=== PATIENT | female | born 1935 | race Caucasian/White ===

== ENCOUNTER 2018-01-20 02:40 | Emergency (ER) | payer MEDICARE, OTHER ==
[~2018-01-20] VITALS: Ht 165.1 cm; Wt 74.8 kg
[~2018-01-20 02:40] MED LIST: AMLO5 PO; ASPI81CH PO; ASPI81EC PO; ATEN25 PO; ATEN50; ATEN50 PO; Aspir 8181 MG PO; BENAML10/40 PO; BENAML20/5; BENAML20/5 PO; Bactrim Ds Tab1 EACH PO; CYCL10 PO; ESTRTP VAG; FAMO20 PO; FOLBEE; FOLIC ACID; FURO20 PO; GABA300 PO; HYDACE10B PO; HYDACE5 PO; HYDCHL50 PO; Hydrocodone-Ap1 EA20 PO; LAXATIVE; LORA.5 PO; Lotrel 5-40 MG1 EACH PO; METCAR500 PO; METO100ER PO; METO50 PO; METO50ER PO; MUSCLE RELAXER; NITR100CA PO; OMEP20ER PO; OXYACE5T PO; OXYC5 PO; PANT40; PANT40 PO; POTCHL10ER PO; PROACE100; PROACE100 PO; RXHYDMOR2 PO; RXONDA4ODT MM; STOOL SOFTENER PO; TOPI25 PO; TOPI50 PO; TRAM50 PO; TYLENOL PM; XARELTO15 MG PO; XARELTO20 MG PO; [UNRECOGNIZED DRUG - OTHER]; [UNRECOGNIZED DRUG - REMARK]
== END 2018-01-20 04:32 | disposition home or self-care (01) ==
LOC: ER 02:40
DX: R04.0 Epistaxis (principal); Z88.8 Allergy status to other drugs, medicaments and biological substances; Z91.018 Allergy to other foods; Z79.899 Other long term (current) drug therapy; Z79.891 Long term (current) use of opiate analgesic; I10 Essential (primary) hypertension; I48.91 Unspecified atrial fibrillation; K21.9 Gastro-esophageal reflux disease without esophagitis; Z86.73 Personal history of transient ischemic attack (TIA), and cerebral infarction without residual deficits
CPT/HCPCS: 30901; 99283

== ENCOUNTER → 2018-03-30 | Outpatient (CLI) | payer MEDICARE, OTHER ==
[2018-03-31 12:43] LABS: Blood, Urine 1+ (Neg); Glucose Qualitative, Urine Neg (Neg); Ketones, Urine Neg (Neg); Leukocyte Esterase, Urine 2+ (Neg); Nitrite, Urine Pos (Neg); Protein, Urine 1+ (Neg); Specific Gravity, Urine 1.015 (1.003-1.022); Urobilinogen, Urine 2+ (Normal)
[2018-03-31 12:54] LABS: Appearance, Urine Hazy (Clear); Bilirubin, Urine 2+ (Neg); Color, Urine Brown (P-Yellow)
[2018-03-31 12:55] LABS: Bacteria Many /hpf; Squamous Epithelial Cells Few /hpf (Few)
== END ==
LOC: LAB 17:20 → LAB SHORT 17:20
PROVIDERS: Registered Nurse
DX: R32 Unspecified urinary incontinence (principal)
CPT/HCPCS: 81001; 87077; 87086; 87186

== ENCOUNTER 2018-05-06 20:10 | Inpatient (IN) | payer MEDICARE, OTHER ==
[~2018-05-06] VITALS: Ht 162.6 cm; Wt 71.9 kg
[2018-05-06 20:41] LABS: BASOPHILS ABSOLUTE AUTO 0.02 K/mm3 (0.00-0.23); BASOPHILS PERCENT AUTO 0 % (0-2); EOSINOPHILS PERCENT AUTO 0 % (0-6); Hematocrit 36.8 % (33.0-51.0); Hemoglobin 12.8 g/dL (11.5-16.0); IMMATURE GRAN PERCENT AUTO 1 % (0-1); LYMPHOCYTES ABSOLUTE AUTO 0.59 K/mm3 (0.84-5.20); LYMPHOCYTES PERCENT AUTO 3 % (21-46); MONOCYTES ABSOLUTE AUTO 1.55 K/mm3 (0.16-1.47); MONOCYTES PERCENT AUTO 7 % (4-13); Mean Corpuscular HGB 33.3 pg (26.0-34.0); Mean Corpuscular HGB Conc 34.8 g/dL (31.5-36.5); Mean Corpuscular Volume 96 fL (80-100); Mean Platelet Volume 10.6 fL (9.1-12.4); NEUTROPHILS ABSOLUTE AUTO 18.78 K/mm3 (1.96-9.15); NEUTROPHILS PERCENT AUTO 89 % (41-73); Platelet Count 250 K/mm3 (150-400); RDW Coefficient Variation 16.4 % (11.7-14.2); RDW Standard Deviation 57.5 fL (35.1-46.3); Red Blood Cell Count 3.84 M/mm3 (3.80-5.20); White Blood Cell Count 21.14 K/mm3 (4.00-11.30)
[2018-05-06 20:54] LABS: Alanine Aminotransfer (ALT/SGP 71 U/L (12-78); Albumin, Blood 2.9 g/dL (3.4-5.0); Albumin/Globulin Ratio 0.7 (0.8-1.8); Alk Phos 444 U/L (50-136); Anion Gap 10 mmol/L (6-16); Aspartate Aminotrans (AST/SGOT 72 U/L (12-37); Bilirubin, Total 13.3 mg/dL (0.1-1.0); Blood Urea Nitrogen 18 mg/dL (8-24); Bun/Creatinine Ratio 20.4 (12.0-20.0); CO2, Blood 24 mmol/L (21-32); Calcium, Blood 9.9 mg/dL (8.5-10.1); Chloride, Blood 100 mmol/L (98-108); Creatinine, Blood 0.88 mg/dL (0.40-1.00); Globulin, Blood 4.3 g/dL (2.2-4.0); Glomerular Filtration Rate >60 (60-); Glucose, Blood 129 mg/dL (70-99); Potassium, Blood 3.6 mmol/L (3.5-5.5); Sodium, Blood 134 mmol/L (136-145); Total Protein, Blood 7.2 g/dL (6.4-8.2)
[2018-05-06 21:19] LABS: Source, Urine Clean Catch
[2018-05-06 21:21] LABS: Blood, Urine 1+ (Neg); Glucose Qualitative, Urine Neg (Neg); Ketones, Urine 1+ (Neg); Leukocyte Esterase, Urine 1+ (Neg); Nitrite, Urine Neg (Neg); Protein, Urine 2+ (Neg); Urobilinogen, Urine 2+ (Normal)
[2018-05-06 21:28] LABS: Appearance, Urine Clear (Clear); Bacteria Mod /hpf; Bilirubin, Urine 3+ (Neg); Color, Urine Amber (P-Yellow); Red Blood Cells, Urine 0-2 /hpf (0-2); Squamous Epithelial Cells Rare /hpf (Few); White Blood Cells, Urine 0-2 /hpf (0-5)
[2018-05-06 21:29] LABS: Amorphous Light (0-Heavy)
[2018-05-07 00:06] LABS: International Normalized Ratio 1.42; Prothrombin Time Results 14.3 Sec (9.7-11.5)
[2018-05-07 03:55] LABS: Hematocrit 33.2 % (33.0-51.0); Hemoglobin 11.3 g/dL (11.5-16.0); Mean Corpuscular HGB 32.3 pg (26.0-34.0); Mean Corpuscular Volume 95 fL (80-100); Mean Platelet Volume 10.5 fL (9.1-12.4); Platelet Count 231 K/mm3 (150-400); RDW Coefficient Variation 16.4 % (11.7-14.2); RDW Standard Deviation 57.3 fL (35.1-46.3); White Blood Cell Count 16.63 K/mm3 (4.00-11.30)
[2018-05-07 04:17] LABS: Alanine Aminotransfer (ALT/SGP 62 U/L (12-78); Albumin, Blood 2.5 g/dL (3.4-5.0); Albumin/Globulin Ratio 0.6 (0.8-1.8); Alk Phos 372 U/L (50-136); Anion Gap 10 mmol/L (6-16); Aspartate Aminotrans (AST/SGOT 60 U/L (12-37); Bilirubin, Total 11.3 mg/dL (0.1-1.0); Blood Urea Nitrogen 19 mg/dL (8-24); Bun/Creatinine Ratio 30.9 (12.0-20.0); CO2, Blood 25 mmol/L (21-32); Calcium, Blood 9.1 mg/dL (8.5-10.1); Chloride, Blood 102 mmol/L (98-108); Creatinine, Blood 0.61 mg/dL (0.40-1.00); Globulin, Blood 3.9 g/dL (2.2-4.0); Glomerular Filtration Rate >60 (60-); Glucose, Blood 121 mg/dL (70-99); Potassium, Blood 3.3 mmol/L (3.5-5.5); Sodium, Blood 137 mmol/L (136-145); Total Protein, Blood 6.4 g/dL (6.4-8.2)
[2018-05-08 04:57] LABS: Hematocrit 33.2 % (33.0-51.0); Hemoglobin 11.1 g/dL (11.5-16.0); Mean Corpuscular HGB 32.2 pg (26.0-34.0); Mean Corpuscular HGB Conc 33.4 g/dL (31.5-36.5); Mean Corpuscular Volume 96 fL (80-100); Mean Platelet Volume 10.7 fL (9.1-12.4); Platelet Count 228 K/mm3 (150-400); RDW Coefficient Variation 16.8 % (11.7-14.2); RDW Standard Deviation 59.5 fL (35.1-46.3); Red Blood Cell Count 3.45 M/mm3 (3.80-5.20); White Blood Cell Count 10.21 K/mm3 (4.00-11.30)
[2018-05-08 05:20] LABS: Alanine Aminotransfer (ALT/SGP 55 U/L (12-78); Albumin, Blood 2.2 g/dL (3.4-5.0); Albumin/Globulin Ratio 0.6 (0.8-1.8); Alk Phos 317 U/L (50-136); Amylase, Blood 30 U/L (25-115); Anion Gap 8 mmol/L (6-16); Aspartate Aminotrans (AST/SGOT 65 U/L (12-37); Bilirubin, Total 7.4 mg/dL (0.1-1.0); Blood Urea Nitrogen 17 mg/dL (8-24); CO2, Blood 24 mmol/L (21-32); Calcium, Blood 8.5 mg/dL (8.5-10.1); Chloride, Blood 106 mmol/L (98-108); Creatinine, Blood 0.68 mg/dL (0.40-1.00); Globulin, Blood 3.8 g/dL (2.2-4.0); Glomerular Filtration Rate >60 (60-); Glucose, Blood 85 mg/dL (70-99); Potassium, Blood 3.9 mmol/L (3.5-5.5); Sodium, Blood 138 mmol/L (136-145)
[2018-05-09 04:06] LABS: HBSAG SCREEN Negative (Negative); HEP A AB, IGM Negative (Negative); HEP B CORE AB, IGM Negative (Negative); HEP C VIRUS AB 0.2 (0.0-0.9)
[2018-05-09 04:54] LABS: Hematocrit 33.3 % (33.0-51.0); Hemoglobin 11.2 g/dL (11.5-16.0); Mean Corpuscular HGB 32.6 pg (26.0-34.0); Mean Corpuscular HGB Conc 33.6 g/dL (31.5-36.5); Mean Corpuscular Volume 97 fL (80-100); Mean Platelet Volume 10.9 fL (9.1-12.4); Platelet Count 232 K/mm3 (150-400); RDW Coefficient Variation 16.8 % (11.7-14.2); RDW Standard Deviation 59.6 fL (35.1-46.3); Red Blood Cell Count 3.44 M/mm3 (3.80-5.20); White Blood Cell Count 7.31 K/mm3 (4.00-11.30)
[2018-05-09 05:26] LABS: Alanine Aminotransfer (ALT/SGP 57 U/L (12-78); Albumin, Blood 2.4 g/dL (3.4-5.0); Albumin/Globulin Ratio 0.6 (0.8-1.8); Alk Phos 321 U/L (50-136); Amylase, Blood 25 U/L (25-115); Anion Gap 10 mmol/L (6-16); Aspartate Aminotrans (AST/SGOT 54 U/L (12-37); Bilirubin, Total 6.7 mg/dL (0.1-1.0); Blood Urea Nitrogen 12 mg/dL (8-24); Bun/Creatinine Ratio 19.6 (12.0-20.0); CO2, Blood 21 mmol/L (21-32); Calcium, Blood 8.6 mg/dL (8.5-10.1); Chloride, Blood 109 mmol/L (98-108); Creatinine, Blood 0.61 mg/dL (0.40-1.00); Globulin, Blood 3.7 g/dL (2.2-4.0); Glomerular Filtration Rate >60 (60-); Glucose, Blood 91 mg/dL (70-99); Potassium, Blood 3.8 mmol/L (3.5-5.5); Sodium, Blood 140 mmol/L (136-145); Total Protein, Blood 6.1 g/dL (6.4-8.2)
[2018-05-10 04:53] LABS: BASOPHILS ABSOLUTE AUTO 0.05 K/mm3 (0.00-0.23); BASOPHILS PERCENT AUTO 1 % (0-2); EOSINOPHILS ABSOLUTE AUTO 0.48 K/mm3 (0.00-0.68); EOSINOPHILS PERCENT AUTO 7 % (0-6); Hematocrit 32.1 % (33.0-51.0); Hemoglobin 10.7 g/dL (11.5-16.0); IMMATURE GRAN ABSOLUTE AUTO 0.02 K/mm3 (0.00-0.10); IMMATURE GRAN PERCENT AUTO 0 % (0-1); LYMPHOCYTES ABSOLUTE AUTO 1.93 K/mm3 (0.84-5.20); LYMPHOCYTES PERCENT AUTO 27 % (21-46); MONOCYTES ABSOLUTE AUTO 0.64 K/mm3 (0.16-1.47); MONOCYTES PERCENT AUTO 9 % (4-13); Mean Corpuscular HGB 32.5 pg (26.0-34.0); Mean Corpuscular HGB Conc 33.3 g/dL (31.5-36.5); Mean Corpuscular Volume 98 fL (80-100); Mean Platelet Volume 10.7 fL (9.1-12.4); NEUTROPHILS ABSOLUTE AUTO 4.17 K/mm3 (1.96-9.15); NEUTROPHILS PERCENT AUTO 57 % (41-73); Platelet Count 216 K/mm3 (150-400); RDW Coefficient Variation 16.4 % (11.7-14.2); RDW Standard Deviation 58.7 fL (35.1-46.3); Red Blood Cell Count 3.29 M/mm3 (3.80-5.20); White Blood Cell Count 7.29 K/mm3 (4.00-11.30)
[2018-05-10 05:17] LABS: Alanine Aminotransfer (ALT/SGP 47 U/L (12-78); Albumin, Blood 2.1 g/dL (3.4-5.0); Albumin/Globulin Ratio 0.6 (0.8-1.8); Alk Phos 306 U/L (50-136); Anion Gap 8 mmol/L (6-16); Aspartate Aminotrans (AST/SGOT 43 U/L (12-37); Bilirubin, Total 5.1 mg/dL (0.1-1.0); Blood Urea Nitrogen 8 mg/dL (8-24); Bun/Creatinine Ratio 13.5 (12.0-20.0); CO2, Blood 22 mmol/L (21-32); Calcium, Blood 8.3 mg/dL (8.5-10.1); Chloride, Blood 109 mmol/L (98-108); Creatinine, Blood 0.59 mg/dL (0.40-1.00); Globulin, Blood 3.6 g/dL (2.2-4.0); Glomerular Filtration Rate >60 (60-); Glucose, Blood 86 mg/dL (70-99); Potassium, Blood 4.1 mmol/L (3.5-5.5); Sodium, Blood 139 mmol/L (136-145); Total Protein, Blood 5.7 g/dL (6.4-8.2)
[2018-05-11 04:50] LABS: BASOPHILS ABSOLUTE AUTO 0.05 K/mm3 (0.00-0.23); BASOPHILS PERCENT AUTO 1 % (0-2); EOSINOPHILS ABSOLUTE AUTO 0.19 K/mm3 (0.00-0.68); EOSINOPHILS PERCENT AUTO 2 % (0-6); Hematocrit 33.9 % (33.0-51.0); Hemoglobin 11.3 g/dL (11.5-16.0); IMMATURE GRAN ABSOLUTE AUTO 0.05 K/mm3 (0.00-0.10); IMMATURE GRAN PERCENT AUTO 1 % (0-1); LYMPHOCYTES ABSOLUTE AUTO 1.82 K/mm3 (0.84-5.20); LYMPHOCYTES PERCENT AUTO 17 % (21-46); MONOCYTES ABSOLUTE AUTO 0.88 K/mm3 (0.16-1.47); MONOCYTES PERCENT AUTO 8 % (4-13); Mean Corpuscular HGB 32.8 pg (26.0-34.0); Mean Corpuscular HGB Conc 33.3 g/dL (31.5-36.5); Mean Corpuscular Volume 98 fL (80-100); NEUTROPHILS ABSOLUTE AUTO 7.81 K/mm3 (1.96-9.15); NEUTROPHILS PERCENT AUTO 72 % (41-73); Platelet Count 260 K/mm3 (150-400); RDW Coefficient Variation 16.1 % (11.7-14.2); RDW Standard Deviation 58.5 fL (35.1-46.3); Red Blood Cell Count 3.45 M/mm3 (3.80-5.20)
[2018-05-11 05:09] LABS: Alanine Aminotransfer (ALT/SGP 49 U/L (12-78); Albumin, Blood 2.5 g/dL (3.4-5.0); Albumin/Globulin Ratio 0.6 (0.8-1.8); Alk Phos 345 U/L (50-136); Anion Gap 9 mmol/L (6-16); Aspartate Aminotrans (AST/SGOT 42 U/L (12-37); Bilirubin, Direct 3.8 mg/dL (0.0-0.3); Bilirubin, Total 4.9 mg/dL (0.1-1.0); Blood Urea Nitrogen 6 mg/dL (8-24); Bun/Creatinine Ratio 11.6 (12.0-20.0); CO2, Blood 23 mmol/L (21-32); Calcium, Blood 8.9 mg/dL (8.5-10.1); Chloride, Blood 105 mmol/L (98-108); Creatinine, Blood 0.52 mg/dL (0.40-1.00); Glomerular Filtration Rate >60 (60-); Glucose, Blood 120 mg/dL (70-99); Glutamyl Transpeptidase, GGT 162 U/L (5-55); Potassium, Blood 3.8 mmol/L (3.5-5.5); Sodium, Blood 137 mmol/L (136-145); Total Protein, Blood 6.5 g/dL (6.4-8.2)
[2018-05-12 04:29] LABS: Hematocrit 31.6 % (33.0-51.0); Hemoglobin 10.7 g/dL (11.5-16.0); Mean Corpuscular HGB 33.8 pg (26.0-34.0); Mean Corpuscular HGB Conc 33.9 g/dL (31.5-36.5); Mean Corpuscular Volume 100 fL (80-100); Mean Platelet Volume 11.1 fL (9.1-12.4); Platelet Count 253 K/mm3 (150-400); RDW Coefficient Variation 15.7 % (11.7-14.2); RDW Standard Deviation 57.7 fL (35.1-46.3); Red Blood Cell Count 3.17 M/mm3 (3.80-5.20); White Blood Cell Count 9.45 K/mm3 (4.00-11.30)
[2018-05-12 04:51] LABS: Alanine Aminotransfer (ALT/SGP 45 U/L (12-78); Albumin, Blood 2.2 g/dL (3.4-5.0); Albumin/Globulin Ratio 0.6 (0.8-1.8); Alk Phos 281 U/L (50-136); Amylase, Blood 32 U/L (25-115); Anion Gap 7 mmol/L (6-16); Aspartate Aminotrans (AST/SGOT 42 U/L (12-37); Bilirubin, Total 3.5 mg/dL (0.1-1.0); Blood Urea Nitrogen 8 mg/dL (8-24); Bun/Creatinine Ratio 12.6 (12.0-20.0); CO2, Blood 24 mmol/L (21-32); Calcium, Blood 8.8 mg/dL (8.5-10.1); Chloride, Blood 105 mmol/L (98-108); Creatinine, Blood 0.63 mg/dL (0.40-1.00); Globulin, Blood 3.7 g/dL (2.2-4.0); Glomerular Filtration Rate >60 (60-); Glucose, Blood 100 mg/dL (70-99); Potassium, Blood 4.2 mmol/L (3.5-5.5); Sodium, Blood 136 mmol/L (136-145); Total Protein, Blood 5.9 g/dL (6.4-8.2)
[2018-05-12 11:09] LABS: COMPLEMENT C4, SERUM 18 mg/dL (14-44)
[2018-05-13 04:59] LABS: Hematocrit 32.6 % (33.0-51.0); Hemoglobin 10.7 g/dL (11.5-16.0); Mean Corpuscular HGB 33.3 pg (26.0-34.0); Mean Corpuscular HGB Conc 32.8 g/dL (31.5-36.5); Mean Corpuscular Volume 102 fL (80-100); Mean Platelet Volume 10.5 fL (9.1-12.4); Platelet Count 251 K/mm3 (150-400); RDW Coefficient Variation 15.5 % (11.7-14.2); RDW Standard Deviation 57.5 fL (35.1-46.3); Red Blood Cell Count 3.21 M/mm3 (3.80-5.20); White Blood Cell Count 8.49 K/mm3 (4.00-11.30)
[2018-05-13 05:16] LABS: Alanine Aminotransfer (ALT/SGP 53 U/L (12-78); Albumin, Blood 2.2 g/dL (3.4-5.0); Albumin/Globulin Ratio 0.6 (0.8-1.8); Alk Phos 258 U/L (50-136); Anion Gap 7 mmol/L (6-16); Aspartate Aminotrans (AST/SGOT 50 U/L (12-37); Bilirubin, Total 2.8 mg/dL (0.1-1.0); Blood Urea Nitrogen 7 mg/dL (8-24); Bun/Creatinine Ratio 9.7 (12.0-20.0); CO2, Blood 25 mmol/L (21-32); Calcium, Blood 8.5 mg/dL (8.5-10.1); Chloride, Blood 106 mmol/L (98-108); Creatinine, Blood 0.72 mg/dL (0.40-1.00); Globulin, Blood 3.6 g/dL (2.2-4.0); Glomerular Filtration Rate >60 (60-); Glucose, Blood 97 mg/dL (70-99); Potassium, Blood 4.3 mmol/L (3.5-5.5); Sodium, Blood 138 mmol/L (136-145); Total Protein, Blood 5.8 g/dL (6.4-8.2)
[2018-05-13] MEDS ORDERED: Cholestyramine L4 GM PO (15:02)
[2018-05-13] MEDS ORDERED: Allergy Medicat25 MG PO (15:03)
[2018-05-13] MEDS ORDERED: DOCU100 PO (15:04)
[2018-05-13] MEDS ORDERED: HYDCOR2.5C PR (15:07)
[2018-05-13] MEDS ORDERED: Amitiza24 MCG PO (15:08)
[2018-05-13] MEDS ORDERED: LEVFLO250 PO (15:08)
[2018-05-13] MEDS ORDERED: ONDA4ODT MM (15:09)
[2018-05-13] MEDS ORDERED: SENN187 PO (15:13)
[2018-05-14 14:09] LABS: RNP ANTIBODIES 0.3 AI (0.0-0.9); SJOGREN'S ANTI-SS-A >8.0 AI (0.0-0.9); SJOGREN'S ANTI-SS-B <0.2 AI (0.0-0.9); SMITH ANTIBODIES <0.2 AI (0.0-0.9)
[2018-05-17 07:07] LABS: ANTI-DSDNA ANTIBODIES <1 IU/mL (0-9); COMPLEMENT C3, SERUM 122 mg/dL (82-167)
== END 2018-05-13 15:54 | disposition home or self-care (01) | DRG 872 ==
LOC: ER 20:10 → MEDS 23:41 → ENPENDDIS 05-13 14:34 → MEDS 05-13 15:54
PROVIDERS: Emergency Medicine; Family Medicine; Internal Medicine; Internal Medicine Gastroenterology
DX: A41.59 Other Gram-negative sepsis (principal); F11.20 Opioid dependence, uncomplicated; R17 Unspecified jaundice; N39.0 Urinary tract infection, site not specified; M19.90 Unspecified osteoarthritis, unspecified site; M79.7 Fibromyalgia; E78.5 Hyperlipidemia, unspecified; I10 Essential (primary) hypertension; I48.2 Chronic atrial fibrillation; M54.9 Dorsalgia, unspecified; K21.9 Gastro-esophageal reflux disease without esophagitis; G89.4 Chronic pain syndrome; K59.03 Drug induced constipation; Z86.73 Personal history of transient ischemic attack (TIA), and cerebral infarction without residual deficits
CPT/HCPCS: 36415; 51701; 51702; 71046; 74176; 74181; 76705; 80053; 80074; 81001; 82150; 82248; 82977; 83516; 83605; 83690; 84145; 85025; 85027; 85610; 85730; 86038; 86140; 86160; 86225; 86235; 86376; 87040; 87077; 87086; 87186; 93005; 93010; 97116; 97161; 97166; 97535; 99285-25; G8978; G8979; G8980; G8987; G8988; J1956; J2060; J2405; J2543; J7030

== ENCOUNTER → 2018-10-15 | Outpatient (CLI) | payer MEDICARE, OTHER ==
[~2018-10-15] MED LIST changes: +Allergy Medicat25 MG PO; +Amitiza24 MCG PO; +Cholestyramine L4 GM PO; +DOCU100 PO; +HYDCOR2.5C PR; +LEVFLO250 PO; +ONDA4ODT MM; +SENN187 PO
== END | disposition home or self-care (01) ==
LOC: LAB 15:30 → LAB SHORT 15:30
DX: R30.0 Dysuria (principal)
CPT/HCPCS: 87077; 87086; 87186

== ENCOUNTER 2019-10-25 16:08 | Emergency (ER) | payer MEDICARE, OTHER ==
[~2019-10-25] VITALS: Ht 165.1 cm; Wt 72.6 kg
[2019-10-25 17:37] LABS: BASOPHILS ABSOLUTE AUTO 0.05 K/mm3 (0.00-0.23); BASOPHILS PERCENT AUTO 1 % (0-2); EOSINOPHILS ABSOLUTE AUTO 0.14 K/mm3 (0.00-0.68); EOSINOPHILS PERCENT AUTO 2 % (0-6); Hematocrit 38.8 % (33.0-51.0); Hemoglobin 12.4 g/dL (11.5-16.0); IMMATURE GRAN ABSOLUTE AUTO 0.02 K/mm3 (0.00-0.10); IMMATURE GRAN PERCENT AUTO 0 % (0-1); LYMPHOCYTES ABSOLUTE AUTO 2.03 K/mm3 (0.84-5.20); LYMPHOCYTES PERCENT AUTO 30 % (21-46); MONOCYTES ABSOLUTE AUTO 0.66 K/mm3 (0.16-1.47); MONOCYTES PERCENT AUTO 10 % (4-13); Mean Corpuscular HGB 33.1 pg (26.0-34.0); Mean Corpuscular Volume 104 fL (80-100); Mean Platelet Volume 10.1 fL (9.1-12.4); NEUTROPHILS ABSOLUTE AUTO 3.86 K/mm3 (1.96-9.15); NEUTROPHILS PERCENT AUTO 57 % (41-73); Platelet Count 231 K/mm3 (150-400); RDW Coefficient Variation 12.4 % (11.7-14.2); RDW Standard Deviation 47.4 fL (35.1-46.3); Red Blood Cell Count 3.75 M/mm3 (3.80-5.20); White Blood Cell Count 6.76 K/mm3 (4.00-11.30)
[2019-10-25 17:56] LABS: Alanine Aminotransfer (ALT/SGP 21 U/L (12-78); Albumin, Blood 3.5 g/dL (3.4-5.0); Alk Phos 78 U/L (50-136); Anion Gap 3 mmol/L (6-16); Aspartate Aminotrans (AST/SGOT 24 U/L (12-37); Bilirubin, Total 0.8 mg/dL (0.1-1.0); Blood Urea Nitrogen 16 mg/dL (8-24); Bun/Creatinine Ratio 17.8 (12.0-20.0); CO2, Blood 27 mmol/L (21-32); Calcium, Blood 9.4 mg/dL (8.5-10.1); Chloride, Blood 108 mmol/L (98-108); Globulin, Blood 3.6 g/dL (2.2-4.0); Glomerular Filtration Rate >60 (60-); Glucose, Blood 99 mg/dL (70-99); Potassium, Blood 4.5 mmol/L (3.5-5.5); Sodium, Blood 138 mmol/L (136-145); Total Protein, Blood 7.1 g/dL (6.4-8.2)
[2019-10-25 19:52] LABS: Source, Urine Clean Catch
[2019-10-25 19:59] LABS: Bilirubin, Urine Neg (Neg); Blood, Urine Neg (Neg); Glucose Qualitative, Urine Neg (Neg); Ketones, Urine Neg (Neg); Leukocyte Esterase, Urine 2+ (Neg); Nitrite, Urine Neg (Neg); Protein, Urine Neg (Neg); Specific Gravity, Urine 1.025 (1.003-1.022); Urobilinogen, Urine 1+ (Normal)
[2019-10-25 20:03] LABS: Appearance, Urine Clear (Clear); Color, Urine Yellow (P-Yellow)
[2019-10-25 20:04] LABS: Amorphous Light (0-Heavy); Bacteria Many /hpf; Mucus Mod (0-Heavy); Red Blood Cells, Urine 0-2 /hpf (0-2); Squamous Epithelial Cells Few /hpf (Few)
[2019-10-25] MEDS ORDERED: Tizanidine HCl2 MG PO (20:17)
[2019-10-25] MEDS ORDERED: XARELTO15 M1 PO (20:17)
== END 2019-10-25 22:51 | disposition home or self-care (01) ==
LOC: ER 16:08
PROVIDERS: Physician Assistant
DX: S70.02XA Contusion of left hip, initial encounter (principal); I48.91 Unspecified atrial fibrillation; I10 Essential (primary) hypertension; M79.7 Fibromyalgia; M41.9 Scoliosis, unspecified; K21.9 Gastro-esophageal reflux disease without esophagitis; M19.90 Unspecified osteoarthritis, unspecified site; Z88.8 Allergy status to other drugs, medicaments and biological substances; Z91.048 Other nonmedicinal substance allergy status; Z79.899 Other long term (current) drug therapy; W19.XXXA Unspecified fall, initial encounter
CPT/HCPCS: 36415; 70450; 73502; 80053; 81001; 84443; 85025; 87086; 96361; 96374; 96376; 99284-25; J7030

== ENCOUNTER 2019-11-11 15:27 | Emergency (ER) | payer MEDICARE, OTHER ==
[~2019-11-11] VITALS: Ht 165.1 cm; Wt 72.6 kg
[~2019-11-11 15:27] MED LIST changes: +Tizanidine HCl2 MG PO; +XARELTO15 M1 PO
[2019-11-11 19:19] LABS: BASOPHILS ABSOLUTE AUTO 0.06 K/mm3 (0.00-0.23); BASOPHILS PERCENT AUTO 1 % (0-2); EOSINOPHILS PERCENT AUTO 1 % (0-6); Hematocrit 41.1 % (33.0-51.0); Hemoglobin 13.3 g/dL (11.5-16.0); IMMATURE GRAN ABSOLUTE AUTO 0.01 K/mm3 (0.00-0.10); IMMATURE GRAN PERCENT AUTO 0 % (0-1); LYMPHOCYTES ABSOLUTE AUTO 2.12 K/mm3 (0.84-5.20); LYMPHOCYTES PERCENT AUTO 30 % (21-46); MONOCYTES PERCENT AUTO 11 % (4-13); Mean Corpuscular HGB 33.4 pg (26.0-34.0); Mean Corpuscular HGB Conc 32.4 g/dL (31.5-36.5); Mean Corpuscular Volume 103 fL (80-100); NEUTROPHILS ABSOLUTE AUTO 4.08 K/mm3 (1.96-9.15); NEUTROPHILS PERCENT AUTO 57 % (41-73); Platelet Count 244 K/mm3 (150-400); RDW Coefficient Variation 12.5 % (11.7-14.2); Red Blood Cell Count 3.98 M/mm3 (3.80-5.20); White Blood Cell Count 7.17 K/mm3 (4.00-11.30)
[2019-11-11 19:39] LABS: Alanine Aminotransfer (ALT/SGP 41 U/L (12-78); Albumin, Blood 3.7 g/dL (3.4-5.0); Alk Phos 78 U/L (50-136); Anion Gap 6 mmol/L (6-16); Aspartate Aminotrans (AST/SGOT 24 U/L (12-37); Bilirubin, Total 0.7 mg/dL (0.1-1.0); Blood Urea Nitrogen 15 mg/dL (8-24); Bun/Creatinine Ratio 18.3 (12.0-20.0); CO2, Blood 26 mmol/L (21-32); Calcium, Blood 9.9 mg/dL (8.5-10.1); Chloride, Blood 106 mmol/L (98-108); Creatinine, Blood 0.82 mg/dL (0.40-1.00); Globulin, Blood 3.8 g/dL (2.2-4.0); Glomerular Filtration Rate >60 (60-); Glucose, Blood 99 mg/dL (70-99); Potassium, Blood 4.1 mmol/L (3.5-5.5); Sodium, Blood 138 mmol/L (136-145); Total Protein, Blood 7.5 g/dL (6.4-8.2); Troponin I <0.015 ng/mL (0.000-0.040)
[2019-11-11] MEDS ORDERED: METO100ER PO (20:53)
[2019-11-11] MEDS ORDERED: Lasix20 MG PO (20:53)
== END 2019-11-11 21:29 | disposition home or self-care (01) ==
LOC: ER 15:27
PROVIDERS: Emergency Medicine
DX: R60.0 Localized edema (principal); I48.20 Chronic atrial fibrillation, unspecified; I10 Essential (primary) hypertension; Z79.899 Other long term (current) drug therapy
CPT/HCPCS: 36415; 71046; 73590; 80053; 83880; 84484; 85025; 93005; 93010; 96374; 99284-25

== ENCOUNTER 2019-11-24 09:28 | Emergency (ER) | payer MEDICARE, OTHER ==
[~2019-11-24] VITALS: Ht 165.1 cm; Wt 70.3 kg
[~2019-11-24 09:28] MED LIST changes: +Lasix20 MG PO
[2019-11-24 12:00] LABS: BASOPHILS ABSOLUTE AUTO 0.05 K/mm3 (0.00-0.23); BASOPHILS PERCENT AUTO 1 % (0-2); EOSINOPHILS ABSOLUTE AUTO 0.05 K/mm3 (0.00-0.68); EOSINOPHILS PERCENT AUTO 1 % (0-6); Hematocrit 40.7 % (33.0-51.0); Hemoglobin 13.3 g/dL (11.5-16.0); IMMATURE GRAN ABSOLUTE AUTO 0.02 K/mm3 (0.00-0.10); IMMATURE GRAN PERCENT AUTO 0 % (0-1); LYMPHOCYTES ABSOLUTE AUTO 1.48 K/mm3 (0.84-5.20); LYMPHOCYTES PERCENT AUTO 21 % (21-46); MONOCYTES ABSOLUTE AUTO 0.69 K/mm3 (0.16-1.47); MONOCYTES PERCENT AUTO 10 % (4-13); Mean Corpuscular HGB 33.4 pg (26.0-34.0); Mean Corpuscular HGB Conc 32.7 g/dL (31.5-36.5); Mean Corpuscular Volume 102 fL (80-100); Mean Platelet Volume 11.2 fL (9.1-12.4); NEUTROPHILS ABSOLUTE AUTO 4.71 K/mm3 (1.96-9.15); NEUTROPHILS PERCENT AUTO 67 % (41-73); Platelet Count 224 K/mm3 (150-400); RDW Coefficient Variation 12.2 % (11.7-14.2); RDW Standard Deviation 46.5 fL (35.1-46.3); Red Blood Cell Count 3.98 M/mm3 (3.80-5.20)
[2019-11-24 12:34] LABS: Alanine Aminotransfer (ALT/SGP 24 U/L (12-78); Albumin, Blood 3.4 g/dL (3.4-5.0); Albumin/Globulin Ratio 0.9 (0.8-1.8); Alk Phos 83 U/L (50-136); Anion Gap 6 mmol/L (6-16); Aspartate Aminotrans (AST/SGOT 30 U/L (12-37); Blood Urea Nitrogen 15 mg/dL (8-24); Bun/Creatinine Ratio 18.7 (12.0-20.0); CO2, Blood 28 mmol/L (21-32); Calcium, Blood 9.4 mg/dL (8.5-10.1); Chloride, Blood 105 mmol/L (98-108); Globulin, Blood 3.8 g/dL (2.2-4.0); Glomerular Filtration Rate >60 (60-); Glucose, Blood 130 mg/dL (70-99); Potassium, Blood 3.6 mmol/L (3.5-5.5); Sodium, Blood 139 mmol/L (136-145); Total Protein, Blood 7.2 g/dL (6.4-8.2); Troponin I <0.015 ng/mL (0.000-0.040)
== END 2019-11-24 15:55 | disposition home or self-care (01) ==
LOC: ER 09:28
PROVIDERS: Physician Assistant
DX: R60.0 Localized edema (principal); I10 Essential (primary) hypertension; I48.91 Unspecified atrial fibrillation; K21.9 Gastro-esophageal reflux disease without esophagitis; Z79.899 Other long term (current) drug therapy; W06.XXXA Fall from bed, initial encounter
CPT/HCPCS: 36415; 70450; 80053; 83880; 84484; 85025; 93005; 93010; 99284-25

== ENCOUNTER 2019-12-01 12:33 | Emergency (ER) | payer MEDICARE, OTHER ==
[~2019-12-01] VITALS: Ht 165.1 cm; Wt 72.6 kg
[2019-12-01 14:21] LABS: BASOPHILS ABSOLUTE AUTO 0.05 K/mm3 (0.00-0.23); BASOPHILS PERCENT AUTO 1 % (0-2); EOSINOPHILS PERCENT AUTO 0 % (0-6); Hemoglobin 14.3 g/dL (11.5-16.0); IMMATURE GRAN ABSOLUTE AUTO 0.03 K/mm3 (0.00-0.10); IMMATURE GRAN PERCENT AUTO 0 % (0-1); LYMPHOCYTES ABSOLUTE AUTO 1.36 K/mm3 (0.84-5.20); LYMPHOCYTES PERCENT AUTO 12 % (21-46); MONOCYTES PERCENT AUTO 8 % (4-13); Mean Corpuscular HGB Conc 32.5 g/dL (31.5-36.5); Mean Corpuscular Volume 102 fL (80-100); Mean Platelet Volume 10.8 fL (9.1-12.4); NEUTROPHILS ABSOLUTE AUTO 8.74 K/mm3 (1.96-9.15); NEUTROPHILS PERCENT AUTO 79 % (41-73); Platelet Count 248 K/mm3 (150-400); RDW Coefficient Variation 12.2 % (11.7-14.2); RDW Standard Deviation 45.9 fL (35.1-46.3); Red Blood Cell Count 4.33 M/mm3 (3.80-5.20); White Blood Cell Count 11.08 K/mm3 (4.00-11.30)
[2019-12-01 14:45] LABS: Alanine Aminotransfer (ALT/SGP 28 U/L (12-78); Albumin, Blood 3.8 g/dL (3.4-5.0); Albumin/Globulin Ratio 0.9 (0.8-1.8); Alk Phos 87 U/L (50-136); Anion Gap 8 mmol/L (6-16); Aspartate Aminotrans (AST/SGOT 35 U/L (12-37); Blood Urea Nitrogen 34 mg/dL (8-24); Bun/Creatinine Ratio 32.4 (12.0-20.0); CO2, Blood 29 mmol/L (21-32); Calcium, Blood 10.6 mg/dL (8.5-10.1); Chloride, Blood 101 mmol/L (98-108); Creatinine, Blood 1.05 mg/dL (0.40-1.00); Globulin, Blood 4.1 g/dL (2.2-4.0); Glomerular Filtration Rate 53 (60-); Glucose, Blood 117 mg/dL (70-99); Potassium, Blood 3.7 mmol/L (3.5-5.5); Sodium, Blood 138 mmol/L (136-145); Total Protein, Blood 7.9 g/dL (6.4-8.2); Troponin I <0.015 ng/mL (0.000-0.040)
[2019-12-01 17:03] LABS: Source, Urine Clean Catch
[2019-12-01 17:07] LABS: Bilirubin, Urine Neg (Neg); Blood, Urine 1+ (Neg); Glucose Qualitative, Urine Neg (Neg); Ketones, Urine Neg (Neg); Leukocyte Esterase, Urine 3+ (Neg); Nitrite, Urine Neg (Neg); Protein, Urine Neg (Neg); Urobilinogen, Urine NORM (Normal)
[2019-12-01 17:12] LABS: Appearance, Urine Clear (Clear); Color, Urine Yellow (P-Yellow)
[2019-12-01 17:21] LABS: Bacteria Few /hpf; Red Blood Cells, Urine 0-2 /hpf (0-2); Squamous Epithelial Cells Mod /hpf (Few)
== END 2019-12-01 17:36 | disposition home or self-care (01) ==
LOC: ER 12:33
PROVIDERS: Physician Assistant
DX: R29.6 Repeated falls (principal); I10 Essential (primary) hypertension; I48.91 Unspecified atrial fibrillation; K21.9 Gastro-esophageal reflux disease without esophagitis; Z79.899 Other long term (current) drug therapy
CPT/HCPCS: 36415; 73522; 80053; 81001; 82947; 83880; 84484; 85025; 87077; 87086; 87186; 99283-25

== ENCOUNTER 2020-10-22 08:31 | Emergency (ER) | payer MEDICARE, OTHER ==
[~2020-10-22] VITALS: Ht 165.1 cm; Wt 71.7 kg
[~2020-10-22 08:31] MED LIST changes: -DOCU100 PO; -XARELTO20 MG PO
[2020-10-22 09:46] LABS: BASOPHILS ABSOLUTE AUTO 0.05 K/mm3 (0.00-0.23); BASOPHILS PERCENT AUTO 1 % (0-2); EOSINOPHILS ABSOLUTE AUTO 0.07 K/mm3 (0.00-0.68); EOSINOPHILS PERCENT AUTO 1 % (0-6); Hematocrit 38.4 % (33.0-51.0); Hemoglobin 12.2 g/dL (11.5-16.0); IMMATURE GRAN ABSOLUTE AUTO 0.02 K/mm3 (0.00-0.10); IMMATURE GRAN PERCENT AUTO 0 % (0-1); LYMPHOCYTES ABSOLUTE AUTO 1.44 K/mm3 (0.84-5.20); LYMPHOCYTES PERCENT AUTO 22 % (21-46); MONOCYTES ABSOLUTE AUTO 0.71 K/mm3 (0.16-1.47); MONOCYTES PERCENT AUTO 11 % (4-13); Mean Corpuscular HGB 32.2 pg (26.0-34.0); Mean Corpuscular HGB Conc 31.8 g/dL (31.5-36.5); Mean Corpuscular Volume 101 fL (80-100); NEUTROPHILS ABSOLUTE AUTO 4.22 K/mm3 (1.96-9.15); NEUTROPHILS PERCENT AUTO 65 % (41-73); Platelet Count 161 K/mm3 (150-400); RDW Coefficient Variation 12.9 % (11.7-14.2); RDW Standard Deviation 48.3 fL (35.1-46.3); Red Blood Cell Count 3.79 M/mm3 (3.80-5.20); White Blood Cell Count 6.51 K/mm3 (4.00-11.30)
[2020-10-22 10:14] LABS: Source, Urine Catheter
[2020-10-22 10:19] LABS: Appearance, Urine Clear (Clear); Bilirubin, Urine Neg (Neg); Blood, Urine Neg (Neg); Color, Urine Yellow (P-Yellow); Glucose Qualitative, Urine Neg (Neg); Ketones, Urine Neg (Neg); Leukocyte Esterase, Urine Neg (Neg); Nitrite, Urine Neg (Neg); Protein, Urine Neg (Neg); Urobilinogen, Urine NORM (Normal)
[2020-10-22 10:20] LABS: Alanine Aminotransfer (ALT/SGP 16 U/L (12-78); Albumin, Blood 3.3 g/dL (3.4-5.0); Albumin/Globulin Ratio 0.8 (0.8-1.8); Alk Phos 83 U/L (50-136); Anion Gap 6 mmol/L (6-16); Aspartate Aminotrans (AST/SGOT 27 U/L (12-37); Bilirubin, Total 0.9 mg/dL (0.1-1.0); Blood Urea Nitrogen 15 mg/dL (8-24); Bun/Creatinine Ratio 16.3 (12.0-20.0); CO2, Blood 29 mmol/L (21-32); Calcium, Blood 9.7 mg/dL (8.5-10.1); Chloride, Blood 103 mmol/L (98-108); Creatinine, Blood 0.92 mg/dL (0.40-1.00); Glomerular Filtration Rate >60 (60-); Glucose, Blood 108 mg/dL (70-99); Potassium, Blood 3.7 mmol/L (3.5-5.5); Sodium, Blood 138 mmol/L (136-145); Total Protein, Blood 7.3 g/dL (6.4-8.2); Troponin I <0.015 ng/mL (0.000-0.040)
== END 2020-10-22 12:49 | disposition home or self-care (01) ==
LOC: ER 08:31
PROVIDERS: Emergency Medicine
DX: R53.1 Weakness (principal); I10 Essential (primary) hypertension; I48.91 Unspecified atrial fibrillation; Z88.8 Allergy status to other drugs, medicaments and biological substances; Z79.899 Other long term (current) drug therapy; Z79.01 Long term (current) use of anticoagulants
CPT/HCPCS: 36415; 51701; 71046; 80053; 81003; 83880; 84484; 85025; 93005; 93010; 99284-25

== ENCOUNTER 2020-11-29 16:52 | Inpatient (IN) | payer MEDICARE, OTHER ==
[~2020-11-29] VITALS: Ht 162.6 cm; Wt 64.2 kg
[2020-11-29 17:32] LABS: BASOPHILS ABSOLUTE AUTO 0.04 K/mm3 (0.00-0.23); BASOPHILS PERCENT AUTO 1 % (0-2); EOSINOPHILS ABSOLUTE AUTO 0.02 K/mm3 (0.00-0.68); EOSINOPHILS PERCENT AUTO 0 % (0-6); Hemoglobin 11.4 g/dL (11.5-16.0); IMMATURE GRAN ABSOLUTE AUTO 0.02 K/mm3 (0.00-0.10); IMMATURE GRAN PERCENT AUTO 0 % (0-1); LYMPHOCYTES ABSOLUTE AUTO 1.25 K/mm3 (0.84-5.20); LYMPHOCYTES PERCENT AUTO 20 % (21-46); MONOCYTES ABSOLUTE AUTO 0.62 K/mm3 (0.16-1.47); MONOCYTES PERCENT AUTO 10 % (4-13); Mean Corpuscular HGB 32.4 pg (26.0-34.0); Mean Corpuscular HGB Conc 32.6 g/dL (31.5-36.5); Mean Corpuscular Volume 99 fL (80-100); Mean Platelet Volume 10.3 fL (9.1-12.4); NEUTROPHILS ABSOLUTE AUTO 4.23 K/mm3 (1.96-9.15); NEUTROPHILS PERCENT AUTO 69 % (41-73); Platelet Count 222 K/mm3 (150-400); RDW Coefficient Variation 12.6 % (11.7-14.2); RDW Standard Deviation 46.4 fL (35.1-46.3); Red Blood Cell Count 3.52 M/mm3 (3.80-5.20); White Blood Cell Count 6.18 K/mm3 (4.00-11.30)
[2020-11-29 17:54] LABS: Alanine Aminotransfer (ALT/SGP 13 U/L (12-78); Albumin, Blood 3.4 g/dL (3.4-5.0); Albumin/Globulin Ratio 0.9 (0.8-1.8); Alk Phos 77 U/L (50-136); Anion Gap 4 mmol/L (6-16); Aspartate Aminotrans (AST/SGOT 16 U/L (12-37); Bilirubin, Total 0.6 mg/dL (0.1-1.0); Blood Urea Nitrogen 18 mg/dL (8-24); Bun/Creatinine Ratio 16.8 (12.0-20.0); CO2, Blood 31 mmol/L (21-32); Calcium, Blood 9.8 mg/dL (8.5-10.1); Chloride, Blood 103 mmol/L (98-108); Creatinine, Blood 1.07 mg/dL (0.40-1.00); Globulin, Blood 3.8 g/dL (2.2-4.0); Glomerular Filtration Rate 52 (60-); Glucose, Blood 109 mg/dL (70-99); Potassium, Blood 3.8 mmol/L (3.5-5.5); Sodium, Blood 138 mmol/L (136-145); Total Protein, Blood 7.2 g/dL (6.4-8.2)
[2020-11-29 19:36] LABS: Source, Urine Catheter
[2020-11-29 19:46] LABS: Appearance, Urine Clear (Clear); Bilirubin, Urine Neg (Neg); Blood, Urine Neg (Neg); Color, Urine Yellow (P-Yellow); Glucose Qualitative, Urine Neg (Neg); Ketones, Urine Neg (Neg); Leukocyte Esterase, Urine 2+ (Neg); Nitrite, Urine Neg (Neg); Protein, Urine Neg (Neg); Urobilinogen, Urine NORM (Normal)
[2020-11-29 19:57] LABS: Hyaline Casts 50-100 /lpf (0-2)
[2020-11-29 19:58] LABS: Bacteria Few /hpf; Red Blood Cells, Urine Not Seen /hpf (0-2); Renal Epithelial Few /hpf (0-Rare); Squamous Epithelial Cells Not Seen /hpf (Few)
[2020-11-29] MEDS ORDERED: TORSE20 PO (21:14)
[2020-11-29] MEDS ORDERED: POTA10T PO (21:15)
[2020-11-29] MEDS ORDERED: METO100ER PO (21:16)
[2020-11-29] MEDS ORDERED: XARELTO15 MG PO (21:17)
[2020-11-29] MEDS ORDERED: OXYC5 PO (21:18)
[2020-11-29] MEDS ORDERED: DOCU100 PO (21:37)
[2020-11-29] MEDS ORDERED: METO50ER PO (21:39)
[2020-11-29] MEDS ORDERED: METO25 PO (21:40)
[2020-11-29] MEDS ORDERED: CEPH500 PO (21:49)
[2020-11-29 23:45] LABS: Troponin I <0.015 ng/mL (0.000-0.040)
--- NOTE | 2020-11-30 02:13 | NUR ---
ADMISSION RECEIVED REPORT FROM DEION OTERO, AWAITING ARRIVAL FROM THE ER.
--- NOTE | 2020-11-30 03:32 | NUR ---
PT ARRIVAL PT ARRIVES TO ROOM VIA CHANDRA, TX'D SELF TO BE WITH 1 PERSON ASSIST AND FOUR POINT CANE FROM HOME. PT HAS SLOW BUT STEADY GAIT, REMINDED TO STAND TALL AND LOOK TOWARD DESTINATION. PT IS ORIENTED TO SELF ONLY, STATES "CAN SOMEONE CALL MY DAUGHTER, I NEED HER TO COME AND PICK ME UP". ORIENTED TO ROOM AND UNIT, UPDATED ON PLAN OF ADMISSION FOR MEDICATION AND MONITORING, PT IS WILLING BUT STATES "I JUST DON'T KNOW WHY THINGS ARE CONFUSED". REASSURED THAT PLAN OF TREATMENT SHOULD HELP REDUCE CONFUSION AND THAT ALL STAFF WOULD BE REMINDING AND REORIENTING EVERY TIME UPON ENTERING THE ROOM. PT STATES "THANK YOU, I'M VERY TIRED AND I'M HOPING TO GET SOME SLEEP". VSS, TELE SHOWS AFIB IN THE 110'S. WILL INITIATE ADISSION AND PLAN OF CARE BUT WILL BE UNABLE TO COMPLETE HISTORY AND OTHER QUESTIONS UNTIL FAMILY IS AVAILABLE TO ASSIST LATER TODAY. RESCHEDULED FLU VACCINE FOR DAY SHIFT SO THAT THERE'S TIME TO EVALUATE WHETHER IT'S ALREADY BEEN ADMINISTERED THIS SEASON. NO ACUTE CONCERNS AT THIS TIME. BED ALARM ON, BELONGINGS IN REACH, CALL LIGHT IN HAND.
--- NOTE | 2020-11-30 04:45 | NUR ---
REPORT GIVEN GAVE REPORT TO TERENCE OTERO WHO WILL ASSUME CARE AT THIS TIME.
[2020-11-30 05:01] LABS: BASOPHILS ABSOLUTE AUTO 0.05 K/mm3 (0.00-0.23); BASOPHILS PERCENT AUTO 1 % (0-2); EOSINOPHILS ABSOLUTE AUTO 0.07 K/mm3 (0.00-0.68); EOSINOPHILS PERCENT AUTO 1 % (0-6); Hematocrit 31.1 % (33.0-51.0); Hemoglobin 10.4 g/dL (11.5-16.0); IMMATURE GRAN ABSOLUTE AUTO 0.01 K/mm3 (0.00-0.10); IMMATURE GRAN PERCENT AUTO 0 % (0-1); LYMPHOCYTES ABSOLUTE AUTO 1.16 K/mm3 (0.84-5.20); LYMPHOCYTES PERCENT AUTO 20 % (21-46); MONOCYTES ABSOLUTE AUTO 0.61 K/mm3 (0.16-1.47); MONOCYTES PERCENT AUTO 10 % (4-13); Mean Corpuscular HGB 32.8 pg (26.0-34.0); Mean Corpuscular HGB Conc 33.4 g/dL (31.5-36.5); Mean Corpuscular Volume 98 fL (80-100); Mean Platelet Volume 10.5 fL (9.1-12.4); NEUTROPHILS ABSOLUTE AUTO 4.06 K/mm3 (1.96-9.15); NEUTROPHILS PERCENT AUTO 68 % (41-73); Platelet Count 185 K/mm3 (150-400); RDW Coefficient Variation 12.6 % (11.7-14.2); RDW Standard Deviation 45.9 fL (35.1-46.3); Red Blood Cell Count 3.17 M/mm3 (3.80-5.20); White Blood Cell Count 5.96 K/mm3 (4.00-11.30)
[2020-11-30 05:19] LABS: Alanine Aminotransfer (ALT/SGP 27 U/L (12-78); Albumin, Blood 2.8 g/dL (3.4-5.0); Albumin/Globulin Ratio 0.8 (0.8-1.8); Alk Phos 98 U/L (50-136); Anion Gap 9 mmol/L (6-16); Aspartate Aminotrans (AST/SGOT 51 U/L (12-37); Bilirubin, Total 0.9 mg/dL (0.1-1.0); Blood Urea Nitrogen 17 mg/dL (8-24); Bun/Creatinine Ratio 18.3 (12.0-20.0); CO2, Blood 26 mmol/L (21-32); Calcium, Blood 9.1 mg/dL (8.5-10.1); Chloride, Blood 108 mmol/L (98-108); Creatinine, Blood 0.93 mg/dL (0.40-1.00); Globulin, Blood 3.3 g/dL (2.2-4.0); Glomerular Filtration Rate >60 (60-); Glucose, Blood 97 mg/dL (70-99); Potassium, Blood 3.7 mmol/L (3.5-5.5); Sodium, Blood 143 mmol/L (136-145); Total Protein, Blood 6.1 g/dL (6.4-8.2)
--- NOTE | 2020-11-30 08:12 | NUR ---
SHIFT SUMMARY PATIENT HAS APPEARED TO SLEEP WELL THROUGHOUT THE REST OF THE NIGHT SINCE CARE WAS ASSUMED. PATIENT SET OF THE BED ALARM X 1 WHEN SHE NEEDED TO GET UP AND USE THE BSC. PATIENT VERY CONFUSED AND FORGETFUL. PATIENT IS PLEASENT BUT DOES NOT REORIENT WELL. REPORT GIVEN TO ONCOMING RN.
--- NOTE | 2020-11-30 08:28 | NUR ---
UPDATE DAY SHIFT AWARE THAT THE REST OF PATIENT'S ADMIT IS INCOMPLETE DUE TO PATIENT BEING A POOR HISTORIAN AND INABILITY TO ANSWER QUESTIONS. DAY SHIFT WILL ATTEMPT TO COMPLETE ADMIT WHEN DAUGHTER IS PRESENT.
--- NOTE | 2020-11-30 19:13 | NUR ---
SHIFT SUMMARY: NO ACUTE CHANGES T/OUT SHIFT. PT CONTINUES ALERT AND ORIENTED TO SELF AND SURROUNDINGS. ABLE TO MAINTAIN O2 SATS >92% ON ROOM AIR. AFIB ON MONITORS WITH RATE OF 90-110'S. PT INCONSISTENT WITH CALL LIGHT USE, SOMETIMES CALLING OUT INSTEAD, BED ALARM SET OFF 1 TIME. PT WAS ABLE TO STAND AND TRANSFER SELF TO BSC WITH 4-POINT CANE FROM HOME, SLOW AND HUNCHED OVER, 1 PERSON ASSIST. PT SWALLOWED PILLS WITH APPLESAUCE W/OUT DIFFICULTY. REPORT GIVEN TO BRANDEN REED.
--- NOTE | 2020-12-01 01:24 | NUR ---
PT UPDATE PT FREQUENTLY ATTEMPTING TO GET UP TO VOID - BUT PT UNABLE TO VOID FOR PAST 8 HOURS. BLADDER SCAN READS 481ML. RN CALLED - INSTRUCTED TO STRAIGHT CATH NOW, REPEAT BLADDER SCAN IN 6HRS, IF GREATER THAN 300ML READS, PLACE TREJO AT THAT TIME. WILL CONTINUE TO MONITOR.
[2020-12-01 04:46] LABS: Albumin, Blood 2.9 g/dL (3.4-5.0); Anion Gap 7 mmol/L (6-16); Blood Urea Nitrogen 14 mg/dL (8-24); Bun/Creatinine Ratio 15.7 (12.0-20.0); CO2, Blood 23 mmol/L (21-32); Calcium, Blood 9.5 mg/dL (8.5-10.1); Chloride, Blood 110 mmol/L (98-108); Creatinine, Blood 0.89 mg/dL (0.40-1.00); Glomerular Filtration Rate >60 (60-); Glucose, Blood 135 mg/dL (70-99); Phosphorus, Blood 2.5 mg/dL (2.5-4.9); Potassium, Blood 4.6 mmol/L (3.5-5.5); Sodium, Blood 140 mmol/L (136-145)
--- NOTE | 2020-12-01 05:02 | NUR ---
SHIFT SUMMARY PT DID NOT AT ALL THROUGH THE NIGHT. PT ALERT AND ORIENTED X1. PT THINKS SHES AT HOME AND THAT THE NUSES ARE "STRANGERS IN HER HOME". SATS REMAIN >90% ON ROOM AIR. RUNNING AFIB ON TELE - 100-130'S, PRN METOPROLOL GIVEN FOR HR CONTROL. BP AND HR STABLE. PT HAVING DIFFICULTY VOIDING - STRAIGHT CATH DONE - 350ML. 1 SM BM. IVF RUNNING TKO. NEW IV PLACED ON RIGHT FOREARM. ZOFRAN X1 FOR HER "DIZZY HEAD" - SAID SHE WAS NAUSEATED. VSS. CALL LIGHT WITHIN REACH, BED IN LOWEST POSITION. BED ALARM ON. WILL CONTINUE TO MONITOR.
--- NOTE | 2020-12-01 18:26 | NUR ---
PT SUMMARY: PT REMAINED CONFUSED AND FORGETFUL LIKE EARLY DEMENTIA, KNOWS HER NAME AND LOCATION. HRR REMAINED AFIB RANGING 120-160'S THIS AM HR INCREASES WITH EXERTION 100MG METOPROLOL PO WAS GIVEN THIS AM WELL 5MG IV METOPROLOL PUSH STILL STAYS ON WVW289-325'S, PT UNABLE TO DESCRIBE FEELING STATED SHE FEELS "THUMP THUMP" IN HER ABD, HAS BACK PAIN WAS GIVEN TYLENOL X1, REPOSTIONED IN BED FOR COMFORT, MULTIPLE ATTEMPTS OF TRYING TO VOID NO RESULT VIA BSC, RETAINED >400MLS ORDER TO STRAIGHT CATH QSHIFT PRN IF >200MLS RETAINED IN BLADDER SCANNER. CARDIZEM GTT STARTED AT 10MG/HR AND WAS TITRATED DOWN TO 5MG/HR, HR NOW STAYING ON THE 80-110'S. PT NOW EATING DINNER, BED ALARM ON FOR SAFETY, WILL MONITOR TILL END OF SHIFT
--- NOTE | 2020-12-02 01:46 | NUR ---
bladder scanned pt since she has not voided in over 6hrs - two different bladder scans read no higher than 100ml. encouraging po intake, but will continue to monitor.
--- NOTE | 2020-12-02 05:06 | NUR ---
SHIFT SUMMARY PT RESTED BETTER THIS EVENING. ALERT AND ORIENTED X1-2. PT WAS MORE RELAXED AND LESS AGITATED TONIGHT. SATS >90% ON ROOM AIR. TELE - AFIB RATE 90'S-110'S, CARDIZEM GTT RUNNING AT 5MG/HR - STOPPED CARD GTT AT 0500. BP STABLE. PT UNABLE TO VOID STILL, BUT BLADDER SCANNED X2, WITH ONLY SHOWING ABOUT 100ML IN HER BLADDER. WILL CONTINUE TO ENCOURAGE PO INTAKE. NO BM. VSS. NO C/O PAIN. CALL LIGHT WITHIN REACH, BED IN LOWEST POSITION. BED ALARM ON. WILL CONTINUE TO MONITOR.
--- NOTE | 2020-12-02 17:09 | NUR ---
PT SUMMARY: PT WAS GIVEN LASIX 20MG X 1 DOSE FOR THE SHIFT PT WAS ABLE TO VOID 500MLS BEOFRE THE END OF THE SHIFT URINE CAROLE YELLOW IN COLOR. VITALS HRR 90-140'S THIS AM HR INCREASES WITH EXERTION CARDIZEM GTT HAS BEEN OFF SINCE 0700A, PT STARTED ON CARDIZEM PO, PT'S HRR NOW STABLE AT 90-110'S INCREASES UP TO 120'S WITH EXERTION, BP STABLE, HAS MILD SOB WITH EXERTION SATS REMAINED ABOVE 90% ON RA. PT DENIES ANY PAIN OR DISCOMFORT FOR THE SHIFT. REMAINS FORGETFUL AND CONFUSED WITH MILD HALLUCINATION LIKE STATING THERE WAS A "CAT AND A BABY" IN HER ROOM. PT REORIENTED. PT HAS BEEN GETTING UP IN THE CHAIR AND USES BED SIDE COMMODE FOR TOILETING 1PA VIA CANE, UNSTEADY GAIT. POOR APPETITE PT WAS ENCOURAGED TO DRINK FLUIDS, OFFERED ENSURE THIS AM HAD ATLEAST 50%. NO OTHER ISSUES ENCOUNTERED FOR THE SHIFT, BED ALARM AND CALL LIGHTS IN REACH FOR SAFETY, TAB ALARM WHEN UP IN THE CHAIR. WILL MONITOR UNTIL END OF SHIFT
[2020-12-03 04:56] LABS: Albumin, Blood 2.8 g/dL (3.4-5.0); Anion Gap 6 mmol/L (6-16); Blood Urea Nitrogen 16 mg/dL (8-24); Bun/Creatinine Ratio 17.8 (12.0-20.0); CO2, Blood 26 mmol/L (21-32); Calcium, Blood 9.4 mg/dL (8.5-10.1); Chloride, Blood 109 mmol/L (98-108); Glomerular Filtration Rate >60 (60-); Glucose, Blood 102 mg/dL (70-99); Phosphorus, Blood 2.3 mg/dL (2.5-4.9); Potassium, Blood 3.5 mmol/L (3.5-5.5); Sodium, Blood 141 mmol/L (136-145)
--- NOTE | 2020-12-03 05:52 | NUR ---
SHIFT SUMMARY PT RESTED THROUGH NIGHT. INTERMITTENT CONFUSION - BUT ABLE TO MAKE NEEDS KNOWN. SATS >90% ON ROOM AIR. TELE A FIB, RATE 90'S. MEDICATED WITH TYLENOL X1. UP TO COMMODE TO VOID X1 - 200ML OUTPUT. NO BM. VSS. CALL LIGHT WITHIN REACH, BED IN LOWEST POSITION. WILL CONTINUE TO MONITOR.
--- NOTE | 2020-12-03 18:32 | NUR ---
SHIFT SUMMARY PT ALERT AND ORIENTED TO SELF, PLACE AND SITUATION, BUT FORGETFUL AT TIMES. VS STABLE. HR AFIB IN THE 80'S THIS SHIFT. BP STABLE. O2 SATS REMAIN ABOVE 90% ON RA. PT COMPLAINED OF BACK PAIN AND MEDICATED NEEDED ALONG WITH REPOSITIONING. PT ABLE TO TRANSFER TO CHAIR OR BSC NEEDED WITH CANE AND 1 ASSIST. REPORT GIVEN TO MEDICAL FLOOR RN. PT TAKEN UP BY BED.
--- NOTE | 2020-12-04 07:13 | NUR ---
SHIFT SUMMARY PATIENT ALERT AND ORIENTED X2. HAD NO COMPLAINTS OF PAIN OR SHORTNESS OF BREATH. SLEPT WELL OVERNIGHT. NO ACUTE ISSUES NOTED. IV PATENT AND FLUSHED. BED IN LOWEST POSITION WITH WHEELS LOCKED AND ALARM ON. CALL LIGHT WITHIN REACH. REPORT GIVEN TO ONCOMING RN.
--- NOTE | 2020-12-04 10:56 | NUR ---
T/C FROM TELE MONITOR, PT'S HR HAS BEEN TRENDING UP THIS MORNING 100'S TO 120'S, AM CARDIZEM GIVEN AT 0850, 120 MG PO. RECEIVED ANOTHER T/C FROM THE TELE MONITOR, PT'S HR CONTINUES TO TREND UP, 130'S TO 140'S. PRN CARDIZEM GIVEN AT 1049, 30MG PO. WILL CONTINUE TO MONITOR.
--- NOTE | 2020-12-04 14:27 | NUR ---
PER HORSE FARM MANAGER PT'S HEART RATE IN THE 90'S AT THIS TIME. WILL CONTINUE TO MONITOR
[2020-12-04] MEDS ORDERED: DILT180 PO (15:40)
== END 2020-12-04 17:58 | disposition home health service (06) | DRG 308 ==
LOC: ER 16:52 → PCU 16:53 → MEDS 11-30 16:45 → PCU 11-30 16:45 → MEDS 12-03 18:28
PROVIDERS: Emergency Medicine; Internal Medicine; ADMIT Internal Medicine
DX: I48.20 Chronic atrial fibrillation, unspecified (principal); G92 Toxic encephalopathy; F03.91 Unspecified dementia, unspecified severity, with behavioral disturbance; F05 Delirium due to known physiological condition; I50.22 Chronic systolic (congestive) heart failure; N39.0 Urinary tract infection, site not specified; Z86.73 Personal history of transient ischemic attack (TIA), and cerebral infarction without residual deficits; I34.0 Nonrheumatic mitral (valve) insufficiency; E78.5 Hyperlipidemia, unspecified; Z79.01 Long term (current) use of anticoagulants; I11.0 Hypertensive heart disease with heart failure; E87.70 Fluid overload, unspecified; E86.0 Dehydration; K21.9 Gastro-esophageal reflux disease without esophagitis; M79.7 Fibromyalgia
CPT/HCPCS: 36415; 70450; 71045; 80053; 80069; 81001; 83735; 83880; 84443; 84484; 85025; 87086; 93005; 93010; 96365; 96366; 96375; 97163; 97165; 97530; 97535; 99285-25; A9270; C1751; G0378; J0696; J1160; J1940; J2405; J3480; J7030; J7040; J7050; J7060

== ENCOUNTER 2020-12-07 15:47 | Inpatient (IN) | payer MEDICARE, OTHER ==
[~2020-12-07] VITALS: Ht 157.5 cm; Wt 57.9 kg
[~2020-12-07 15:47] MED LIST changes: +CEPH500 PO; +DILT180 PO; +DOCU100 PO; +METO25 PO; +POTA10T PO; +TORSE20 PO
[2020-12-07 16:38] LABS: BASOPHILS ABSOLUTE AUTO 0.04 K/mm3 (0.00-0.23); BASOPHILS PERCENT AUTO 0 % (0-2); EOSINOPHILS ABSOLUTE AUTO 0.01 K/mm3 (0.00-0.68); EOSINOPHILS PERCENT AUTO 0 % (0-6); Hematocrit 38.1 % (33.0-51.0); Hemoglobin 12.6 g/dL (11.5-16.0); IMMATURE GRAN ABSOLUTE AUTO 0.05 K/mm3 (0.00-0.10); IMMATURE GRAN PERCENT AUTO 0 % (0-1); LYMPHOCYTES ABSOLUTE AUTO 0.77 K/mm3 (0.84-5.20); LYMPHOCYTES PERCENT AUTO 7 % (21-46); MONOCYTES ABSOLUTE AUTO 1.21 K/mm3 (0.16-1.47); MONOCYTES PERCENT AUTO 10 % (4-13); Mean Corpuscular HGB 33.2 pg (26.0-34.0); Mean Corpuscular HGB Conc 33.1 g/dL (31.5-36.5); Mean Corpuscular Volume 101 fL (80-100); Mean Platelet Volume 10.1 fL (9.1-12.4); NEUTROPHILS ABSOLUTE AUTO 9.51 K/mm3 (1.96-9.15); NEUTROPHILS PERCENT AUTO 82 % (41-73); Platelet Count 248 K/mm3 (150-400); RDW Coefficient Variation 13.5 % (11.7-14.2); RDW Standard Deviation 49.1 fL (35.1-46.3); Red Blood Cell Count 3.79 M/mm3 (3.80-5.20); White Blood Cell Count 11.59 K/mm3 (4.00-11.30)
[2020-12-07] MEDS ORDERED: CARTIA XT120 M1 PO (16:42)
[2020-12-07 17:04] LABS: Alanine Aminotransfer (ALT/SGP 18 U/L (12-78); Albumin, Blood 3.3 g/dL (3.4-5.0); Albumin/Globulin Ratio 0.8 (0.8-1.8); Alk Phos 87 U/L (50-136); Anion Gap 6 mmol/L (6-16); Aspartate Aminotrans (AST/SGOT 13 U/L (12-37); Bilirubin, Total 1.7 mg/dL (0.1-1.0); Blood Urea Nitrogen 9 mg/dL (8-24); Bun/Creatinine Ratio 10.9 (12.0-20.0); CO2, Blood 25 mmol/L (21-32); Calcium, Blood 9.7 mg/dL (8.5-10.1); Chloride, Blood 106 mmol/L (98-108); Creatinine, Blood 0.82 mg/dL (0.40-1.00); Glomerular Filtration Rate >60 (60-); Glucose, Blood 122 mg/dL (70-99); Potassium, Blood 3.6 mmol/L (3.5-5.5); Sodium, Blood 137 mmol/L (136-145); Total Protein, Blood 7.3 g/dL (6.4-8.2)
[2020-12-07 17:11] LABS: Magnesium, Blood 1.8 mg/dL (1.6-2.4); Troponin I <0.015 ng/mL (0.000-0.040)
--- NOTE | 2020-12-07 20:39 | NUR ---
PT ARRIVED AT 20:20. SHE IS ALERT AND CONFUSED. SHE IS WANTING TO GO HOME TONIGHT. PT VITALS ARE STABLE EXCEPT FOR TEMP OF 100.6. PT HAS PAIN IN RIGHT FINGERS; MIDDLE FINGER AND THUMB SWOLLEN. CARDIZEM GTT @10ML/HR. HEART RATE IN 110'S. ORIENTED TO ROOM/UNIT AND CALL LIGHT.
--- NOTE | 2020-12-07 23:02 | NUR ---
CALLED DR GRACE REGARDING THE NEED TO TITRATE CARDIZEM GTT BECAUSE OF DECREASE OF HEART RATE. HR 80'S. WILL PUT IN NEW ORDER.
[2020-12-08 04:29] LABS: Anion Gap 6 mmol/L (6-16); Blood Urea Nitrogen 11 mg/dL (8-24); CO2, Blood 27 mmol/L (21-32); Calcium, Blood 8.9 mg/dL (8.5-10.1); Chloride, Blood 108 mmol/L (98-108); Creatinine, Blood 0.84 mg/dL (0.40-1.00); Glomerular Filtration Rate >60 (60-); Glucose, Blood 94 mg/dL (70-99); Potassium, Blood 3.1 mmol/L (3.5-5.5); Sodium, Blood 141 mmol/L (136-145)
--- NOTE | 2020-12-08 05:55 | NUR ---
CALLED DR OQUENDO, PT K+ WAS 3.1 ORDER WAS KCL 40IV X1; R HAND SWELLING AND PAIN, ORDER WAS TO REASSESS LATER TODAY; PT WAS UNABLE TO URINATE SINCE ADMIT, BLADDER SCAN READ 826, ORDER WAS TO STRAIGHT CATH. AND RECHECK BLADDER SCAN IN 6 HRS.
--- NOTE | 2020-12-08 07:08 | NUR ---
SHIFT SUMMARY PT HAS BEEN ALERT WITH SOME CONFUSION OVER NIGHT. PT WAS UNABLE TO GIVE MEDICAL HX AND DAUGHTER THAT WAS IN ED WITH HER LEFT FOR THE NIGHT BEFORE COMING TO FLOOR. PT STATES THAT SHE LIVES ALONE WITH HER 2 DOGS AND FALLS FREQUENTLY. PT HAD RIGHT MIDDLE FINGER AND THUMB SWELLING AND PAIN WHEN ADMITTED, NOW WHOLE HAND IS SWOLLEN AND VERY PAINFUL, DR WAS CALLED. VITALS HAVE BEEN STABLE. PT WAS UNABLE TO URINATE AND WAS STRAIGHT CATH'D WITH 1100 OUTPUT. K+ WAS LOW AND ADDRESSED BY . VITALS HAVE BEEN STABLE, DENIES SOB OR CHEST PAIN.
--- NOTE | 2020-12-08 18:49 | NUR ---
SUMMARY NO ACUTE CHANGES THROUGH THE DAY. PT REMAINS IN AFIB, HE BETWEEN 64-114. PT DENIES CP/PRESSURE. IV CARDIZEM WAS D/C AROUND 1300, PO MEDS WERE GIVEN PER EMAR. PT IS TOLERATING THEM WITH NO PROBLEM'S. TOLERATING PO INTAKE, VOIDING WNLT, CALL LIGHT IN REACH.
[2020-12-09 04:28] LABS: BASOPHILS ABSOLUTE AUTO 0.03 K/mm3 (0.00-0.23); BASOPHILS PERCENT AUTO 0 % (0-2); EOSINOPHILS ABSOLUTE AUTO 0.33 K/mm3 (0.00-0.68); EOSINOPHILS PERCENT AUTO 4 % (0-6); Hematocrit 33.1 % (33.0-51.0); Hemoglobin 11.1 g/dL (11.5-16.0); IMMATURE GRAN ABSOLUTE AUTO 0.02 K/mm3 (0.00-0.10); IMMATURE GRAN PERCENT AUTO 0 % (0-1); LYMPHOCYTES ABSOLUTE AUTO 1.22 K/mm3 (0.84-5.20); LYMPHOCYTES PERCENT AUTO 16 % (21-46); MONOCYTES ABSOLUTE AUTO 0.57 K/mm3 (0.16-1.47); MONOCYTES PERCENT AUTO 7 % (4-13); Mean Corpuscular HGB 32.9 pg (26.0-34.0); Mean Corpuscular HGB Conc 33.5 g/dL (31.5-36.5); Mean Corpuscular Volume 98 fL (80-100); Mean Platelet Volume 9.8 fL (9.1-12.4); NEUTROPHILS ABSOLUTE AUTO 5.67 K/mm3 (1.96-9.15); NEUTROPHILS PERCENT AUTO 72 % (41-73); Platelet Count 197 K/mm3 (150-400); RDW Coefficient Variation 13.2 % (11.7-14.2); RDW Standard Deviation 47.2 fL (35.1-46.3); Red Blood Cell Count 3.37 M/mm3 (3.80-5.20); White Blood Cell Count 7.84 K/mm3 (4.00-11.30)
[2020-12-09 04:43] LABS: Anion Gap 4 mmol/L (6-16); Blood Urea Nitrogen 17 mg/dL (8-24); Bun/Creatinine Ratio 18.6 (12.0-20.0); CO2, Blood 27 mmol/L (21-32); Calcium, Blood 9.3 mg/dL (8.5-10.1); Chloride, Blood 109 mmol/L (98-108); Creatinine, Blood 0.91 mg/dL (0.40-1.00); Glomerular Filtration Rate >60 (60-); Glucose, Blood 124 mg/dL (70-99); Magnesium, Blood 1.7 mg/dL (1.6-2.4); Potassium, Blood 3.8 mmol/L (3.5-5.5); Sodium, Blood 140 mmol/L (136-145)
--- NOTE | 2020-12-09 07:29 | NUR ---
SHIFT SUMMARY PATIENT APPEARED TO BE AWAKE THROUGHOUT MOST OF THE NIGHT. PATIENT CONFUSED AND FORGETFUL. PATIENT KEPT ASKING TO GO TO HER BED. PATIENT DOES NOT REORIENTED EASILY. THIS MORNING PATIENT WANTED STAFF TO GO THE THE "DOWNSTAIRS ROOM" AND CHECK FOR HER BLUE PURSE, WHEN PATIENT ORIENTED TO LOCATION SHE SAID "THEN GO DOWNSTAIRS AND SHOW ME THAT IT'S NOT THERE." PATIENT RESTLESS THROUGHOUT THE NIGHT. PATIENT VERY FOCUSED ON GOING HOME TODAY. REPORT GIVEN TO ONCOMING RN.
--- NOTE | 2020-12-09 19:36 | NUR ---
SUMMARY NO ACUTE CHANGES NOTED THROUGH THE DAY. PT REMAINS IN AFIB, HR 90-120'S, DENIES CP/PRESSURE, BP WNL, NO RASH OR SYMPTOMS OF ALLERGIC REACTION TO NEW MEDICATION NOTED. PT IS ALERT/CONFUSED, BED ALARM FOR SAFETY, SHE HAS ATTEMPTED TO GET OOB MULTIPLE TIMES THINKING SHE WAS AT HOME OR ELSEWHERE. PT IS A STAND BY ASSIST TO BSC, UNSTEADY GAIT, DOES NOT REMEMBER TO USE CALL LIGHT. PT'S GAUGHTER WAS IN TODAY, SHE WAS ABLE TO SPEAK WITH REGARDING HER MOTHER'S CONDITION. D/C REGISTRATION SPECIALIST WILL BE IN TO ASSIST WITH PLANNING IN THE AM. CALL LIGHT IN REACH. REPORT GIVEN TO NILSON OTERO
--- NOTE | 2020-12-09 23:00 | NUR ---
UPDATE PATIENT HAS BEEN RESTLESS AND APPEARS TO BE UNABLE TO SLEEP WELL, DR BENSON ORDERED MELATONIN. PATIENT'S HEART RATE IS AFIB AND HAS BEEN TRENDING UP TO THE 120'S. DR BENSON NOTIFIED AND ORDERED IV LOPRESSOR FOR SUSTAINED HEART RATE GREATER THAN 110.
--- NOTE | 2020-12-10 01:14 | NUR ---
UPDATE PATIENT DECLINED TO HAVE THE SLEEPING PILL WHEN OFFERED. PATIENT STATED SHE FELT SHE WAS NOT HAVING ANY TROUBLE SLEEPING. PATIENT CURRENTLY RESTING IN BED QUIETLY. CALL LIGHT IN REACH.
--- NOTE | 2020-12-10 06:47 | NUR ---
SHIFT SUMMARY PATIENT INITIALLY VERY AGIATED AND RESTLESS AT THE BEGINNING OF THE SHIFT, SETTING OFF THE BED ALARM EVERY COUPLE OF MINUTES ATTEMPTING TO GET OUT OF BED. PATIENT KEPT GETTING UP TO TRY TO "GO TO BED, I'M SO TIRED." STAFF KEPT REORIENTING PATIENT BUT PATIENT KEPT STATING THAT SHE WANTED TO GO TO BED, EVEN WHEN STAFF SHOWED PATIENT THAT SHE WAS ALREADY IN BED. PATIENT WENT ON A VERY SHORT WALK TO THE [place] OUTSIDE HER ROOM AND BACK WITH ONE ASSIST, GAIT BELT, AND A WALKER. LIA THEN SAT UP IN THE RECLINER FOR A SHORT PERIOD OF TIME. THEN PATIENT WAS ABLE TO SETTLED DOWN IN BED. PATIENT APPEARED TO BE LAYING IN BED QUIETLY AWAKE FOR MOST OF THE NIGHT BUT DID APPEAR TO NAP ON AND OFF LAST NIGHT. WILL CONTINUE CURRENT PLAN OF CARE AND REPORT TO ONCOMING RN.
[2020-12-10 14:06] LABS: BASOPHILS ABSOLUTE AUTO 0.05 K/mm3 (0.00-0.23); BASOPHILS PERCENT AUTO 1 % (0-2); EOSINOPHILS ABSOLUTE AUTO 0.12 K/mm3 (0.00-0.68); EOSINOPHILS PERCENT AUTO 2 % (0-6); Hematocrit 35.9 % (33.0-51.0); Hemoglobin 11.9 g/dL (11.5-16.0); IMMATURE GRAN ABSOLUTE AUTO 0.01 K/mm3 (0.00-0.10); IMMATURE GRAN PERCENT AUTO 0 % (0-1); LYMPHOCYTES ABSOLUTE AUTO 1.33 K/mm3 (0.84-5.20); LYMPHOCYTES PERCENT AUTO 22 % (21-46); MONOCYTES ABSOLUTE AUTO 0.64 K/mm3 (0.16-1.47); MONOCYTES PERCENT AUTO 11 % (4-13); Mean Corpuscular HGB 32.8 pg (26.0-34.0); Mean Corpuscular HGB Conc 33.1 g/dL (31.5-36.5); Mean Corpuscular Volume 99 fL (80-100); Mean Platelet Volume 10.3 fL (9.1-12.4); NEUTROPHILS ABSOLUTE AUTO 3.92 K/mm3 (1.96-9.15); NEUTROPHILS PERCENT AUTO 65 % (41-73); Platelet Count 227 K/mm3 (150-400); RDW Coefficient Variation 13.2 % (11.7-14.2); RDW Standard Deviation 47.3 fL (35.1-46.3); Red Blood Cell Count 3.63 M/mm3 (3.80-5.20); White Blood Cell Count 6.07 K/mm3 (4.00-11.30)
[2020-12-10 14:54] LABS: Anion Gap 7 mmol/L (6-16); Blood Urea Nitrogen 15 mg/dL (8-24); Bun/Creatinine Ratio 18.1 (12.0-20.0); CO2, Blood 26 mmol/L (21-32); Calcium, Blood 9.2 mg/dL (8.5-10.1); Chloride, Blood 108 mmol/L (98-108); Creatinine, Blood 0.83 mg/dL (0.40-1.00); Glomerular Filtration Rate >60 (60-); Glucose, Blood 107 mg/dL (70-99); Potassium, Blood 3.7 mmol/L (3.5-5.5); Sodium, Blood 141 mmol/L (136-145)
--- NOTE | 2020-12-10 16:15 | NUR ---
PATIENT TRANSFERRED FROM PCU 11 TO ROOM 348. REPORT RECEIVED FROM BRANDEN DAUGHERTY. PATIENT CONFUSED, ORIENTED TO SELF AND FAMILY. A-FIB ON TELE, RATE CONTROLLED. LOVENOX FOR DVT PREVENTION. PATIENT ORIENTED TO ROOM AND USE OF CALL LIGHT. BED ALARM SET FOR SAFETY, PER REPORT PATIENT DOES NOT USE CALL LIGHT. TAKES PILLS WHOLE IN APPLESAUCE. UP WITH 1 ASSIST TO RESTROOM. HOME HEALTH WITH CAREGIVERS VS PLACEMENT BEING DISCUSSED WITH DAUGHTER ANNI.
--- NOTE | 2020-12-10 16:20 | NUR ---
SUMMARY PT HAS BEEN CALM & COOPERATIVE THROUGH THE DAY. SHE HAS BEEN RESTING QUIETLY AND NOT ATTEMPTING TO GET OOB OFTEN YESTERDAY. PT IS ON ROOM AIR, VSS, REMAINS IN AFIB, DENIES CP/PRESSURE. TOLERATING PO INTAKE, VOIDING WNL. PT WILL BE TRANSFERED TP MEDICAL FLOOR ROOM #348. REPORT HAS BEEN CALL TO RN.
--- NOTE | 2020-12-10 22:43 | NUR ---
12/10/20 2235 VOIDED 50 ML. BLADDER SCAN= 00.
--- NOTE | 2020-12-11 04:01 | NUR ---
12/11/20 0400 HEART MONITOR SHOWS ATRIAL FIB AT 120. ASYMTOMATIC. SEE MAR FOR MED GIVEN. OTHERWISE NO COMPLAINTS. SLEPT WELL.
--- NOTE | 2020-12-11 16:08 | NUR ---
PATIENT ADAMANT TODAY THAT SHE GOES HOME, CALMED AFTER HER FRIEND PHYLLIS CAME TO SEE HER. SPOKE WITH HER DAUGHTER ANNI WHO IS TALKING TO CARE MANAGERS ABOUT SAFE DC PLANS. PATIENT WORKED WITH PT THIS AFTERNOON AND WAS ABLE TO TAKE A SHORT WALK IN THE [place]. TYLENOL GIVEN X1 TODAY FOR BACK PAIN. PATIENT IS A/O TO SELF AND FAMILY ONLY. VSS, ON RA. REMAINS A-FIB ON TELE IN THE 70'S. TOLERATING SMALL AMOUNTS OF CARDIAC DIET. FALL PRECAUTIONS IN PLACE, PATIENT DOES NOT USE CALL LIGHT APPROPRIATELY. SKIN INTACT. COOPERATIVE WITH CARE.
[2020-12-11] MEDS ORDERED: METO100ER PO (23:15)
[2020-12-11] MEDS ORDERED: OXYC5 PO (23:17)
--- NOTE | 2020-12-12 06:06 | NUR ---
PT IS ALERT. CAN BE FORGETFUL, 1 ASSIST WITH FWW TO RESTROOM. TELE MONITOR IN AFIB THIS SHIFT. TYLENOL GIVEN FOR CHRONIC BACK PAIN THIS EVENING.
[2020-12-12] MEDS ORDERED: ROXICODONE5 MG PO (12:13)
[2020-12-12] MEDS ORDERED: ASPI81CH PO (12:14)
[2020-12-12] MEDS ORDERED: COREG12.5 M1 PO (12:15)
[2020-12-12] MEDS ORDERED: SENN187 PO (12:15)
--- NOTE | 2020-12-12 17:44 | NUR ---
DISCHARGED PT DISCHARGED TO HOME WITH DTR. MEDS FAXED AT [facility] AND DTR AWARE. PT AND DTR EDUCATED ABOUT CHANGES IN MEDS AT BEDSIDE. PT IV DC'D. VALUABLE ITEMS WITH PT. DIRECTOR CORPORATE SALES CAME BY AND TALKED TO PT THIS AFTERNOON. PT WANTING TO GO HOME. HOME ARRANGEMENT HAS BEEN MADE FOR THIS PT. DENIES ANY CONCERNS. AND NO PAIN OR SOB.
== END 2020-12-12 17:36 | disposition home health service (06) | DRG 308 ==
LOC: ER 15:47 → PCU 17:55 → MEDS 12-10 17:06
PROVIDERS: Emergency Medicine; Internal Medicine; ADMIT Hospitalist
DX: I48.20 Chronic atrial fibrillation, unspecified (principal); A41.9 Sepsis, unspecified organism; G93.49 Other encephalopathy; I50.42 Chronic combined systolic (congestive) and diastolic (congestive) heart failure; F03.90 Unspecified dementia, unspecified severity, without behavioral disturbance, psychotic disturbance, mood disturbance, and anxiety; I11.0 Hypertensive heart disease with heart failure; E87.6 Hypokalemia; M79.641 Pain in right hand; Z86.73 Personal history of transient ischemic attack (TIA), and cerebral infarction without residual deficits; E78.5 Hyperlipidemia, unspecified; Z98.890 Other specified postprocedural states; Z96.653 Presence of artificial knee joint, bilateral; Z85.828 Personal history of other malignant neoplasm of skin; Z88.8 Allergy status to other drugs, medicaments and biological substances; Z79.899 Other long term (current) drug therapy; K21.9 Gastro-esophageal reflux disease without esophagitis; M79.7 Fibromyalgia; I34.0 Nonrheumatic mitral (valve) insufficiency; I27.20 Pulmonary hypertension, unspecified; S69.91XA Unspecified injury of right wrist, hand and finger(s), initial encounter; W18.30XA Fall on same level, unspecified, initial encounter
CPT/HCPCS: 36415; 71045; 73130; 80048; 80053; 83735; 83880; 84484; 85025; 93005; 93010; 93306; 96374; 97110; 97116; 97162; 97530; 99285-25; A9270; J1650; J3480; J7050

== ENCOUNTER 2020-12-15 13:44 | Inpatient (IN) | payer MEDICARE, OTHER ==
[~2020-12-15] VITALS: Ht 152.4 cm; Wt 55.2 kg
[~2020-12-15 13:44] MED LIST changes: +CARTIA XT120 M1 PO; +COREG12.5 M1 PO; +ROXICODONE5 MG PO
[2020-12-15 14:19] LABS: BASOPHILS ABSOLUTE AUTO 0.05 K/mm3 (0.00-0.23); BASOPHILS PERCENT AUTO 1 % (0-2); EOSINOPHILS ABSOLUTE AUTO 0.07 K/mm3 (0.00-0.68); EOSINOPHILS PERCENT AUTO 1 % (0-6); Hematocrit 39.1 % (33.0-51.0); Hemoglobin 12.8 g/dL (11.5-16.0); IMMATURE GRAN ABSOLUTE AUTO 0.01 K/mm3 (0.00-0.10); IMMATURE GRAN PERCENT AUTO 0 % (0-1); LYMPHOCYTES ABSOLUTE AUTO 1.29 K/mm3 (0.84-5.20); LYMPHOCYTES PERCENT AUTO 18 % (21-46); MONOCYTES ABSOLUTE AUTO 0.61 K/mm3 (0.16-1.47); MONOCYTES PERCENT AUTO 8 % (4-13); Mean Corpuscular HGB 32.7 pg (26.0-34.0); Mean Corpuscular HGB Conc 32.7 g/dL (31.5-36.5); Mean Corpuscular Volume 100 fL (80-100); Mean Platelet Volume 10.1 fL (9.1-12.4); NEUTROPHILS ABSOLUTE AUTO 5.21 K/mm3 (1.96-9.15); NEUTROPHILS PERCENT AUTO 72 % (41-73); Platelet Count 247 K/mm3 (150-400); RDW Coefficient Variation 12.6 % (11.7-14.2); RDW Standard Deviation 46.5 fL (35.1-46.3); Red Blood Cell Count 3.92 M/mm3 (3.80-5.20); White Blood Cell Count 7.24 K/mm3 (4.00-11.30)
[2020-12-15 14:41] LABS: Alanine Aminotransfer (ALT/SGP 20 U/L (12-78); Albumin, Blood 3.4 g/dL (3.4-5.0); Albumin/Globulin Ratio 0.8 (0.8-1.8); Alk Phos 81 U/L (50-136); Anion Gap 4 mmol/L (6-16); Aspartate Aminotrans (AST/SGOT 16 U/L (12-37); Bilirubin, Total 0.7 mg/dL (0.1-1.0); Blood Urea Nitrogen 21 mg/dL (8-24); Bun/Creatinine Ratio 23.9 (12.0-20.0); CO2, Blood 31 mmol/L (21-32); Calcium, Blood 10.1 mg/dL (8.5-10.1); Chloride, Blood 103 mmol/L (98-108); Creatinine, Blood 0.88 mg/dL (0.40-1.00); Globulin, Blood 4.1 g/dL (2.2-4.0); Glomerular Filtration Rate >60 (60-); Glucose, Blood 106 mg/dL (70-99); Potassium, Blood 4.4 mmol/L (3.5-5.5); Sodium, Blood 138 mmol/L (136-145); Total Protein, Blood 7.5 g/dL (6.4-8.2)
[2020-12-15 15:26] LABS: Source, Urine Clean Catch
[2020-12-15 15:31] LABS: Bilirubin, Urine Neg (Neg); Blood, Urine 1+ (Neg); Glucose Qualitative, Urine Neg (Neg); Ketones, Urine Neg (Neg); Leukocyte Esterase, Urine 3+ (Neg); Nitrite, Urine Neg (Neg); Protein, Urine Neg (Neg); Urobilinogen, Urine NORM (Normal)
[2020-12-15 15:44] LABS: Appearance, Urine Clear (Clear); Color, Urine Yellow (P-Yellow)
[2020-12-15 15:46] LABS: Bacteria Mod /hpf; Hyaline Casts 0-2 /lpf (0-2); Red Blood Cells, Urine 0-2 /hpf (0-2); Squamous Epithelial Cells Few /hpf (Few)
--- NOTE | 2020-12-15 18:32 | NUR ---
Assumed Care Received report from [facility]-RN. Patient arrived to unit at 1809 via gurney. Transferred self over with mod assist. Slow to move. A/O to self and family. Forgetful and confused. Thought it was the year 1919. Does not know what hospital she is in. Patient arrived with Zio patch in place to L upper chest. Patient arrived to unit alone without family. Bed in lowest position, oriented to call light, bed alarm on for safety d/t recent falls at home.
--- NOTE | 2020-12-15 19:43 | NUR ---
AFFECT STOIC SHE WATCHES TV. NO C/O VOICED. CALL LIGHT IN REACH
[2020-12-15] MEDS ORDERED: METO100ER PO (21:01)
[2020-12-15] MEDS ORDERED: XARELTO15 M1 PO (21:04)
[2020-12-16 04:49] LABS: Anion Gap 5 mmol/L (6-16); Blood Urea Nitrogen 19 mg/dL (8-24); Bun/Creatinine Ratio 21.3 (12.0-20.0); CO2, Blood 30 mmol/L (21-32); Calcium, Blood 9.7 mg/dL (8.5-10.1); Chloride, Blood 105 mmol/L (98-108); Creatinine, Blood 0.89 mg/dL (0.40-1.00); Glomerular Filtration Rate >60 (60-); Glucose, Blood 96 mg/dL (70-99); Potassium, Blood 3.4 mmol/L (3.5-5.5); Sodium, Blood 140 mmol/L (136-145)
[2020-12-16 06:01] LABS: BASOPHILS ABSOLUTE AUTO 0.07 K/mm3 (0.00-0.23); BASOPHILS PERCENT AUTO 1 % (0-2); EOSINOPHILS ABSOLUTE AUTO 0.16 K/mm3 (0.00-0.68); EOSINOPHILS PERCENT AUTO 2 % (0-6); Hematocrit 35.2 % (33.0-51.0); Hemoglobin 11.8 g/dL (11.5-16.0); IMMATURE GRAN ABSOLUTE AUTO 0.02 K/mm3 (0.00-0.10); IMMATURE GRAN PERCENT AUTO 0 % (0-1); LYMPHOCYTES ABSOLUTE AUTO 1.36 K/mm3 (0.84-5.20); LYMPHOCYTES PERCENT AUTO 18 % (21-46); MONOCYTES ABSOLUTE AUTO 0.69 K/mm3 (0.16-1.47); MONOCYTES PERCENT AUTO 9 % (4-13); Mean Corpuscular HGB 33.1 pg (26.0-34.0); Mean Corpuscular HGB Conc 33.5 g/dL (31.5-36.5); Mean Corpuscular Volume 99 fL (80-100); NEUTROPHILS ABSOLUTE AUTO 5.27 K/mm3 (1.96-9.15); NEUTROPHILS PERCENT AUTO 70 % (41-73); Platelet Count 212 K/mm3 (150-400); RDW Coefficient Variation 12.7 % (11.7-14.2); RDW Standard Deviation 45.2 fL (35.1-46.3); Red Blood Cell Count 3.57 M/mm3 (3.80-5.20); White Blood Cell Count 7.57 K/mm3 (4.00-11.30)
--- NOTE | 2020-12-16 06:46 | NUR ---
HAD NOT VOIDED ALL SHIFT. BLADDER SCAN 531. CALL PLACED TO MD NEGATIVE SPOTTER AND ORDER FOR STR8 CATH X 1 IF UNABLE TO VOID AND IF CONTINUED TO NOT VOID, POSSIBLE TREJO. UPON ENERING ROOM, PT DECIDED TO GET ON COMMODE AND VOID 300 CC. THUS NO STR8 CATH. ASSISED BACK TO ED WITH CALL LIGHT IN REACH
--- NOTE | 2020-12-16 07:24 | NUR ---
SHIFT SUMMARY HAS BEEN RESTING QUIETLY WITH FEW INTERRUPTIONS THIS SHIFT. BECAME ANGRY AND AGITATED WITH STAFF WHEN ASSISTING HER WITH ADLS. DID NOT VOID MOST OF SHIFT, BLADDER SCAN WAS OVER 500. MD WAS NOTIFIED AND ORDERS FOR A STR8 CAATH X 1 IF UNABLE TO VOID, PT DECIDED TO ATTEMPT TO VOID AT BEDSIDE COMMODE AND WAS SUCCESSFUL (300 CC). THEN ASSISTED BACK TO BED. CALL LIGHT IN REACH
--- NOTE | 2020-12-16 18:12 | NUR ---
Shift Summary A/O to self. No family present this shift. Having visual and auditory hallucinations of "dishes falling off the cupboards" "ants on the floor" "a girl laughing under the table" and "bugs in my soup". Foul odorous urine. Did c/o dizziness when getting patient up to use bedside commode. Tele: Afib 92. Medicated for back/leg pain with good effect. Skin intact. Pleasantly confused. No agitation noted this shift. WCTM and report to receiving RN.
--- NOTE | 2020-12-17 04:01 | NUR ---
SHIFT SUMMARY AWAKE EARLIER IN THE SHIFT VOICED HAVING SEEN "BUGS" ON THE ONTIVEROS, AND IN THE HALLWAY, BECAME ANNOYED WITH NURSE WHEN HE WASNT ABLE TO SEE THEM TOO. OTHER STAFF MEMBER WHOM SHE HAD SPOKEN TO ABOUT IT RELAYED SHE FELT THE NURSE WAS "CRAZY" FOR NOT BEING ABLE TO SEE THE BUGS. IV ANTIBIOTICS INFUSING PER MD ORDERS - SEE MAR FOR DETAILS. CURRENTLY RESTING QUIETLY WITHOUT NOTED ACUTE DISTRESS. CALL LIGHT IN REACH
--- NOTE | 2020-12-17 18:46 | NUR ---
SHIFT SUMMARY PT IS A&OX2. PT IS CONFUSED AT TIMES AND DURING AFTERNOON HAD A HALLUCINATION ABOUT SEEING A "FURRY ANIMAL" DURING LUNCH AND WAS TRYING TO FEED IT. PT DAUGHTER CALLED TWICE DURING SHIFT STATING SHE WAS STRESSED AND CONCERNED ABOUT FINDING HELP DESK INTERN CARE FOR PT. PT IS A 1 PERSON TRANSFER TO [facility] [place]. PT DOES NOT USE CALL LIGHT. CURENTLY ASLEEP IN ROOM. EVENING BP LOW AND HR ELEVATE. SPOKE WITH AND HELD EVENING COREG.
--- NOTE | 2020-12-18 03:59 | NUR ---
SHIFT SUMMARY ADMITTED FOR ENCEPHALOPATHY/UTI. DNR CODE. CARE MANAGEMENT IS ASSISTING. PLAN IS FOR DC W/HH, ALTHOUGH FAMILY IS CONCERNED ABOUT THIS PLAN. TELEMETRY: AFIB @ 104 BPM. SHE HAS DEMENTIA AT BASELINE AND IS IMPULSIVE AT TIMES. SHE CAN HALLUCINATE. IV ANTIBIOTICS ARE SCHEDULED. PLEASANTLY CONFUSED, SHE IS REDIRECTABLE.
--- NOTE | 2020-12-18 18:07 | NUR ---
SHIFT SUMMARY PT AxOx3-4 WITH INTERMITTENT CONFUSION. PT VERY EAGER TO DC FROM HOSPITAL. PARTS DEPARTMENT MANAGER WORKING ON SAFE DC PLAN. SPOKE WITH DAUGHTER, ANNI ON PHONE TODAY AND GAVE UPDATE ON STATUS. PT WORKED WITH PHYSICAL THERAPY TODAY. MEDICATED FOR BACK PAIN X1. VITALS REVIEWED. PATIENT CURRENTLY RESTING IN BED EATING DINNER. DENIES ANY NEEDS AT THIS TIME.
--- NOTE | 2020-12-18 19:25 | NUR ---
ASSUMED CARE RECEIVED REPORT FROM BRANDEN PAUL. PT USING BSC, TRANSFERS EASILY. NO ACUTE DISTRESS NOTED. NO FURTHER NEEDS ASSESSED. CALL LIGHT, POSSESSIONS IN REACH, CONTINUE TO MONITOR.
--- NOTE | 2020-12-19 07:00 | NUR ---
ASSISTANT SOFTBALL COACH SUMMARY PT ASLEEP, IN NO ACUTE DISTRESS. VS REVIEWED, WNL. PAIN MANAGED WITH MEDS PER EMAR. REMAINS CONFUSED AT TIMES. NO ACUTE CHANGES IN CONDITION NOTED THROUGHOUT NIGHT. CALL LIGHT, POSSESSIONS IN REACH, BED IN LOW POSITION WITH ALARMS ON. REPORT GIVEN TO BRANDEN TYSON.
--- NOTE | 2020-12-19 16:33 | NUR ---
SPOKE TO DTHai HUTTON FOR AN UPDATE FOR THIS PT; SHE WANTED TO TALK TO THE GIRL FRIDAY FOR MANY OF HER DISCHARGE CONCERNS AND SEE WHAT IS THE PLAN FOR HER MOTHER; CALLED MERYL JJ TO INFORM HER- SHE WILL CALL THE DTR TODAY
--- NOTE | 2020-12-19 17:25 | NUR ---
SHIFT SUMMARY PT AOX2-3; INTERMITTTENT CONFUSED. PT IS IMPULSIVE AT TIMES. PT IS WANTING TO GO HOME; SHE CALLED HER DTR SEVERAL TIMES TODAY. PT MEDICATED FOR PAINX1. PT IS 1P ASSIST WITH FWW. BED IS IN THE LOWEST POSITION AND CALL LIGHT WITHIN REACH
--- NOTE | 2020-12-20 08:24 | NUR ---
ROSE GRADER SUMMARY Bridger SLEPT WELL. WAS MEDICATED TWICE WITH 5MG OF OXYCODONE FOR CHRONIC BILAT HIP AND LEFT KNEE PAIN. A&OX3 WITH SOME IMPULSIVENESS AND BRIEF EPISODE OF CONFUSION. PATIENT WAS VERY EASY TO REORIENT. PATIENT TOLERATING IV ANTIBIOTICS.
--- NOTE | 2020-12-20 17:11 | NUR ---
SUMMARY/DISCHARGE PT BEING DISCHARGED HOME WITH HOME HEALTH, WITH FAMILY, CURRENTLY WAITING FOR FAMILY TO ARRIVE TO GO OVER THE PAPERWORK WITH THEM, PT SITTING UP IN THE CHAIR, CHAIR ALARM ON FOR SAFETY
--- NOTE | 2020-12-20 18:11 | NUR ---
PT DISCHARGED TO HOME WITH FAMILY, DAUGHTER AND GRAND DAUGHTER BOTH VERBALIZED UNDERSTANDING OF FOLLOW UP CARE, PT TAKEN OUT SAFELY VIA WHEELCHAIR
== END 2020-12-20 18:24 | disposition home health service (06) | DRG 689 ==
LOC: ER 13:44 → MEDS 13:45
PROVIDERS: Emergency Medicine; ADMIT Internal Medicine
DX: N39.0 Urinary tract infection, site not specified (principal); G92 Toxic encephalopathy; I48.20 Chronic atrial fibrillation, unspecified; I50.42 Chronic combined systolic (congestive) and diastolic (congestive) heart failure; Z66 Do not resuscitate; I34.0 Nonrheumatic mitral (valve) insufficiency; K21.9 Gastro-esophageal reflux disease without esophagitis; I11.0 Hypertensive heart disease with heart failure; F03.90 Unspecified dementia, unspecified severity, without behavioral disturbance, psychotic disturbance, mood disturbance, and anxiety; M79.7 Fibromyalgia; E87.6 Hypokalemia; Z96.653 Presence of artificial knee joint, bilateral; E78.5 Hyperlipidemia, unspecified; B95.2 Enterococcus as the cause of diseases classified elsewhere; R45.1 Restlessness and agitation; Z60.2 Problems related to living alone; Z86.73 Personal history of transient ischemic attack (TIA), and cerebral infarction without residual deficits; Z98.890 Other specified postprocedural states; Z90.89 Acquired absence of other organs; Z90.49 Acquired absence of other specified parts of digestive tract; Z85.828 Personal history of other malignant neoplasm of skin; Z88.8 Allergy status to other drugs, medicaments and biological substances; Z91.048 Other nonmedicinal substance allergy status; Z87.11 Personal history of peptic ulcer disease; Z79.899 Other long term (current) drug therapy; Z79.82 Long term (current) use of aspirin
CPT/HCPCS: 36415; 80048; 80053; 81001; 85025; 87077; 87086; 87186; 93005; 93010; 93246; 96365-59; 96372; 96375; 96376; 97110; 97116; 97162; 97165; 97530; 97535; 99285-25; A9270; G0378; J0295; J0696; J1650; J7050; P9612

== ENCOUNTER 2021-06-13 20:13 | Emergency (ER) | payer MEDICARE, OTHER ==
[~2021-06-13] VITALS: Ht 165.1 cm; Wt 52.6 kg
[2021-06-13] MEDS ORDERED: LIDO700A20 TOP (22:13)
== END 2021-06-13 23:27 | disposition home or self-care (01) ==
LOC: ER 20:13
DX: M47.817 Spondylosis without myelopathy or radiculopathy, lumbosacral region (principal); M47.816 Spondylosis without myelopathy or radiculopathy, lumbar region; M41.9 Scoliosis, unspecified; I48.20 Chronic atrial fibrillation, unspecified; I10 Essential (primary) hypertension; E78.5 Hyperlipidemia, unspecified; K21.9 Gastro-esophageal reflux disease without esophagitis; Z88.8 Allergy status to other drugs, medicaments and biological substances; Z91.048 Other nonmedicinal substance allergy status; Z79.899 Other long term (current) drug therapy; Z79.82 Long term (current) use of aspirin; Z86.73 Personal history of transient ischemic attack (TIA), and cerebral infarction without residual deficits; W18.30XA Fall on same level, unspecified, initial encounter
CPT/HCPCS: 72070; 72100; 99283-25; A9270

== ENCOUNTER → 2021-07-02 | Outpatient (CLI) | payer MEDICARE, OTHER ==
[~2021-07-02] MED LIST changes: +LIDO700A20 TOP
[2021-07-02 16:00] LABS: Bun/Creatinine Ratio 15.8 (12.0-20.0); Calcium, Blood 9.8 mg/dL (8.5-10.1); Creatinine, Blood 1.14 mg/dL (0.40-1.00); Potassium, Blood 3.9 mmol/L (3.5-5.5)
== END | disposition home or self-care (01) ==
LOC: LAB SHORT 13:42 → LAB 13:42 → LAB FUT 08-24 17:25
PROVIDERS: Nurse Practitioner Family
DX: I10 Essential (primary) hypertension (principal); I48.91 Unspecified atrial fibrillation; R53.83 Other fatigue
CPT/HCPCS: 36415; 80048; 83880

== ENCOUNTER 2022-03-08 03:14 | Emergency (ER) | payer MEDICARE, OTHER ==
[~2022-03-08] VITALS: Ht 165.1 cm; Wt 54.4 kg
[2022-03-08 04:07] LABS: BASOPHILS ABSOLUTE AUTO 0.04 K/mm3 (0.00-0.23); BASOPHILS PERCENT AUTO 1 % (0-2); EOSINOPHILS ABSOLUTE AUTO 0.06 K/mm3 (0.00-0.68); EOSINOPHILS PERCENT AUTO 1 % (0-6); Hematocrit 34.5 % (33.0-51.0); Hemoglobin 11.6 g/dL (11.5-16.0); IMMATURE GRAN ABSOLUTE AUTO 0.04 K/mm3 (0.00-0.10); IMMATURE GRAN PERCENT AUTO 1 % (0-1); LYMPHOCYTES ABSOLUTE AUTO 0.91 K/mm3 (0.84-5.20); LYMPHOCYTES PERCENT AUTO 12 % (21-46); MONOCYTES ABSOLUTE AUTO 0.52 K/mm3 (0.16-1.47); MONOCYTES PERCENT AUTO 7 % (4-13); Mean Corpuscular HGB 32.3 pg (26.0-34.0); Mean Corpuscular HGB Conc 33.6 g/dL (31.5-36.5); Mean Corpuscular Volume 96 fL (80-100); Mean Platelet Volume 10.1 fL (9.1-12.4); NEUTROPHILS ABSOLUTE AUTO 5.91 K/mm3 (1.96-9.15); NEUTROPHILS PERCENT AUTO 79 % (41-73); Platelet Count 199 K/mm3 (150-400); RDW Coefficient Variation 12.3 % (11.7-14.2); RDW Standard Deviation 43.7 fL (35.1-46.3); Red Blood Cell Count 3.59 M/mm3 (3.80-5.20); White Blood Cell Count 7.48 K/mm3 (4.00-11.30)
[2022-03-08 04:18] LABS: Albumin, Blood 3.7 g/dL (3.4-5.0); Bilirubin, Total 0.8 mg/dL (0.1-1.0); Bun/Creatinine Ratio 15.2 (12.0-20.0); Calcium, Blood 10.1 mg/dL (8.5-10.1); Creatinine, Blood 1.05 mg/dL (0.40-1.00); Globulin, Blood 3.7 g/dL (2.2-4.0); Potassium, Blood 3.2 mmol/L (3.5-5.5); Total Protein, Blood 7.4 g/dL (6.4-8.2)
[2022-03-08 08:09] LABS: Source, Urine Straight Cath
[2022-03-08 08:19] LABS: Appearance, Urine Clear (Clear); Bilirubin, Urine Neg (Neg); Blood, Urine Neg (Neg); Color, Urine Yellow (P-Yellow); Glucose Qualitative, Urine Neg (Neg); Ketones, Urine Neg (Neg); Leukocyte Esterase, Urine Neg (Neg); Nitrite, Urine Neg (Neg); Protein, Urine Neg (Neg); Specific Gravity, Urine 1.015 (1.003-1.022); Urobilinogen, Urine NORM (Normal)
== END 2022-03-08 13:22 | disposition home or self-care (01) ==
LOC: ER 03:14
PROVIDERS: Student in an Organized Health Care Education/Training Program
DX: I48.20 Chronic atrial fibrillation, unspecified (principal); R53.1 Weakness; I10 Essential (primary) hypertension; E78.5 Hyperlipidemia, unspecified; F03.90 Unspecified dementia, unspecified severity, without behavioral disturbance, psychotic disturbance, mood disturbance, and anxiety; Z86.73 Personal history of transient ischemic attack (TIA), and cerebral infarction without residual deficits; Z79.82 Long term (current) use of aspirin; Z91.81 History of falling; Z79.899 Other long term (current) drug therapy; Z88.8 Allergy status to other drugs, medicaments and biological substances; Z91.09 Other allergy status, other than to drugs and biological substances
CPT/HCPCS: 36415; 73502; 80053; 81003; 83735; 84484; 85025; 85651; 86140; 93005; 93010; A9270; J1885; J3475; J3480; J7030

== ENCOUNTER 2022-04-10 21:44 | Inpatient (IN) | payer MEDICARE, OTHER ==
[~2022-04-10] VITALS: Ht 157.5 cm; Wt 50.0 kg
[~2022-04-10 21:44] MED LIST changes: +Robaxin750 MG PO
[2022-04-10 22:18] LABS: Source, Urine Foley catheter
[2022-04-10 22:21] LABS: BASOPHILS ABSOLUTE AUTO 0.01 K/mm3 (0.00-0.23); BASOPHILS PERCENT AUTO 0 % (0-2); EOSINOPHILS PERCENT AUTO 0 % (0-6); Hematocrit 49.9 % (33.0-51.0); Hemoglobin 16.2 g/dL (11.5-16.0); IMMATURE GRAN ABSOLUTE AUTO 0.04 K/mm3 (0.00-0.10); IMMATURE GRAN PERCENT AUTO 1 % (0-1); LYMPHOCYTES ABSOLUTE AUTO 1.26 K/mm3 (0.84-5.20); LYMPHOCYTES PERCENT AUTO 15 % (21-46); MONOCYTES ABSOLUTE AUTO 0.72 K/mm3 (0.16-1.47); MONOCYTES PERCENT AUTO 9 % (4-13); Mean Corpuscular HGB 32.1 pg (26.0-34.0); Mean Corpuscular HGB Conc 32.5 g/dL (31.5-36.5); Mean Corpuscular Volume 99 fL (80-100); Mean Platelet Volume 10.5 fL (9.1-12.4); NEUTROPHILS ABSOLUTE AUTO 6.33 K/mm3 (1.96-9.15); NEUTROPHILS PERCENT AUTO 76 % (41-73); Platelet Count 158 K/mm3 (150-400); RDW Coefficient Variation 13.2 % (11.7-14.2); RDW Standard Deviation 48.6 fL (35.1-46.3); Red Blood Cell Count 5.05 M/mm3 (3.80-5.20); White Blood Cell Count 8.36 K/mm3 (4.00-11.30)
[2022-04-10 22:28] LABS: Bilirubin, Urine Neg (Neg); Blood, Urine Neg (Neg); Glucose Qualitative, Urine Neg (Neg); Ketones, Urine 1+ (Neg); Leukocyte Esterase, Urine Neg (Neg); Nitrite, Urine Neg (Neg); Protein, Urine Neg (Neg); Urobilinogen, Urine NORM (Normal)
[2022-04-10 22:37] LABS: International Normalized Ratio 1.05
[2022-04-10 22:39] LABS: Albumin, Blood 3.8 g/dL (3.4-5.0); Albumin/Globulin Ratio 0.9 (0.8-1.8); Bilirubin, Direct 0.3 mg/dL (0.0-0.3); Bilirubin, Indirect 0.5 mg/dL (0.1-0.7); Bilirubin, Total 0.8 mg/dL (0.1-1.0); Bun/Creatinine Ratio 20.2 (12.0-20.0); Calcium, Blood 10.8 mg/dL (8.5-10.1); Creatinine, Blood 3.27 mg/dL (0.40-1.00); Globulin, Blood 4.2 g/dL (2.2-4.0); Phosphorus, Blood 3.5 mg/dL (2.5-4.9); Potassium, Blood 4.2 mmol/L (3.5-5.5)
[2022-04-10 22:56] LABS: Appearance, Urine Clear (Clear); Color, Urine Yellow (P-Yellow)
[2022-04-10 23:03] LABS: Influenza A, PCR NEGATIVE (NEGATIVE); Influenza B, PCR NEGATIVE (NEGATIVE); Resp Syncytial Virus, PCR NEGATIVE (NEGATIVE)
[2022-04-10 23:06] LABS: SARS-Cov-2 (COVID-19) PCR, MMC POSITIVE (NEGATIVE)
[2022-04-11] MEDS ORDERED: ESCITALOPRAM OXA5 MG PO (00:24)
[2022-04-11 03:06] LABS: BASOPHILS ABSOLUTE AUTO 0.01 K/mm3 (0.00-0.23); BASOPHILS PERCENT AUTO 0 % (0-2); EOSINOPHILS PERCENT AUTO 0 % (0-6); Hemoglobin 13.5 g/dL (11.5-16.0); IMMATURE GRAN ABSOLUTE AUTO 0.02 K/mm3 (0.00-0.10); IMMATURE GRAN PERCENT AUTO 0 % (0-1); LYMPHOCYTES ABSOLUTE AUTO 1.22 K/mm3 (0.84-5.20); LYMPHOCYTES PERCENT AUTO 17 % (21-46); MONOCYTES ABSOLUTE AUTO 0.64 K/mm3 (0.16-1.47); MONOCYTES PERCENT AUTO 9 % (4-13); Mean Corpuscular HGB 32.3 pg (26.0-34.0); Mean Corpuscular HGB Conc 31.4 g/dL (31.5-36.5); Mean Corpuscular Volume 103 fL (80-100); Mean Platelet Volume 10.5 fL (9.1-12.4); NEUTROPHILS ABSOLUTE AUTO 5.17 K/mm3 (1.96-9.15); NEUTROPHILS PERCENT AUTO 73 % (41-73); Platelet Count 114 K/mm3 (150-400); RDW Coefficient Variation 13.3 % (11.7-14.2); RDW Standard Deviation 50.9 fL (35.1-46.3); Red Blood Cell Count 4.18 M/mm3 (3.80-5.20); White Blood Cell Count 7.06 K/mm3 (4.00-11.30)
[2022-04-11 03:25] LABS: Albumin, Blood 3.1 g/dL (3.4-5.0); Albumin/Globulin Ratio 0.9 (0.8-1.8); Bilirubin, Total 0.7 mg/dL (0.1-1.0); Bun/Creatinine Ratio 22.7 (12.0-20.0); Calcium, Blood 9.8 mg/dL (8.5-10.1); Creatinine, Blood 2.78 mg/dL (0.40-1.00); Globulin, Blood 3.4 g/dL (2.2-4.0); Potassium, Blood 3.7 mmol/L (3.5-5.5); Total Protein, Blood 6.5 g/dL (6.4-8.2)
--- NOTE | 2022-04-11 03:47 | NUR ---
ADMISSION PT TO ROOM FROM ER. ALERT BUT NOT ORIENTED. EYS FIXED FORWARD. MOANING. PT SLID OVER INTO HOSPITSAL BED. MONITOR SHOWS SINUS TACH 150'S. STABLE BP. PT PRESENTS DRY. PHLEBOTOMY STATES DIFFICULTY WITH DRAWING BLOOD WITH HOW "FLAT" PATIENTS VEINS ARE. PT GIVEN FULL BED BATH. REDNESS NOTED TO FOLDS WHERE DIAPER WAS IN PLACE. STAGE 1 PRESSURE INJURIES TO BILAT HEELS AND BILAT BUTTOCKS. PICTURES TAKEN. AREAS CLEANSED. MEPILEX APPROPRIATE WELL PILLOW PLACEMENT INDICATED. AGGRESSIVE ORAL CARE COMPLETED PATIENT HAD MASSIVE ORAL CASTS EXTENDING FROM FRONT [place]LETTE TO BACK OF THROAT SURROUNDING UVULA. PT'S MOUTH NOW FREE OF CASTS, MOUTH MOISURIZER IN PLACE. FLUIDS STARTED PER EMAR. TEMP TREJO IN PLACE. ADMISSION BEING COMPLETED TO BEST OF ABILITY GIVEN PATIENTS LETHARGIC STATE. AWAITIN TO SEE OF FLUIDS WILL BRING HR DOWN BEFORE TREATING WITH LOPRESSOR PUSH. BED ALARM ON.
--- NOTE | 2022-04-11 06:39 | NUR ---
SHIFT SUMMARY POST ADMIT NO CHANGES POST ADMISSION EXCEPT THE CHANGE FROM NS TO D5W DUE TO INCREASED SODIUM. SERIAL SODIUMS ORDERED, ON THE SLOW DOWNTREND WITH MOST RECENT RESULT NO MENTATION CHANGES. PT BEING TURNED BY STAFF. BED ALRM ON. REMAINS IN ISOLATION FO COVID.
--- NOTE | 2022-04-11 17:53 | NUR ---
SHIFT SUMMARY PT HAS BEEN IN BED THROUGHOUT THE DAY. PT HAS HAD MINIMAL INTERACTION, THEY WILL ANSWER YES/NO AND OCCASIONALLY USED OTHER WORDS. PT DENIED ANY PRESENCE OF PAIN AND APPEARS TO BE RESTING COMFORTABLY. SYSTOLIC BLOOD PRESSURE HAS HOVERED AROUND 100 WITH IMPROVEMENT IN THE AFTERNOON TO 110'S. HEART RATE STARTED AROUND 120 AT START OF SHIFT AND CLIMBED TO 140'S IN THE AFTERNOON. PT WAS TACHYPNEIC IN THE AM WITH A RESPIRATORY RATE OF APPROXIMATELY 26, 2L OF OXYGEN WERE APPLIED IN AN ATTEMPT TO EASE RESPIRATORY RATE. DURING COMMUNICATION, PT APPEARED TO NOT ALWAYS UNDERSTAND WHAT THEY WERE ASKED, SOME QUESTIONS WOULD RETURN A BLANK STARE WITH NO RESPONSE.
--- NOTE | 2022-04-12 06:38 | NUR ---
SHIFT SUMMARY PATIENT ALERT, RESPONDS TO VERBAL STIMULI. ORIENTED TO SELF ONLY. VSS, SOFT BPs, ON 2L NC WITH O2 SAT >90%. TREJO IN PLACE DRAINING YELLOW URINE TO GRAVITY. ATTENDS IN PLACE D/T INCONTINENT OF BOWEL. NM TYLENOL GIVEN FOR FEVER. HEEL PROTECTORS PLACED THIS SHIFT, HEELS FLOATED. NO OTHER SIGNFICANT CHANGES THIS SHIFT. WILL REPORT TO DAY SHIFT RN.
[2022-04-12 11:56] LABS: Bun/Creatinine Ratio 35.2 (12.0-20.0); Calcium, Blood 9.4 mg/dL (8.5-10.1); Creatinine, Blood 1.45 mg/dL (0.40-1.00); Potassium, Blood 2.8 mmol/L (3.5-5.5)
--- NOTE | 2022-04-12 17:30 | NUR ---
SHIFT SUMMARY PT HAS BEEN RESTING IN BED THROUGHOUT THE DAY, THEY HAVE BEEN REPOSITIONED A MINIMUM OF EVERY TWO HOURS. PT HAS RESPONDED TO YES/NO QUESTIONS APPROPRIATELY. PT WILL NOT RESPOND TO ALL QUESTIONS AND WILL LOSE FOCUS QUICKLY AND STARE BLANKLY. PT DENIED PAIN TO THIS RN AND CONFIRMED THE PRESENCE OF PAIN DURING THE PROVIDER'S ASSESSMENT. PT FAMILY MEMBER SPENT SOME TIME AT THE PT'S BEDSIDE, THE PT WAS UNABLE TO SUCCESSFULLY IDENTIFY THEM BUT DID APPEAR TO RECOGNIZE THEM. HEART RATE HAS SLOWLY CLIMBED THROUGHOUT THE DAY AND SYSTOLIC BLOOD PRESSURE HAS RANGED 88-123. PT CONTINUES TO BE ON ROOM AIR WITH A WEAK, WET SOUNDING COUGH.
[2022-04-12 17:39] LABS: Potassium, Blood 3.1 mmol/L (3.5-5.5)
[2022-04-13 04:47] LABS: Bun/Creatinine Ratio 31.7 (12.0-20.0); Calcium, Blood 9.2 mg/dL (8.5-10.1); Creatinine, Blood 0.98 mg/dL (0.40-1.00); Potassium, Blood 3.2 mmol/L (3.5-5.5)
--- NOTE | 2022-04-13 06:03 | NUR ---
SHIFT SUMMARY ASSUMED CARE OF PT AT 1900. PT IS A/OX4. PT IS ALERT WHEN SPOKEN TO BUT NOT ORIENTED. PT ONLY ANSWERED YES/NO QUESTIONS AND SAID ONE WORD SENTENCES. HEART SOUNDS IRREGULAR, PT AFIB T/O THE NIGHT. LUNG SOUNDS DIMINSHED AT THE BASES. PT WAS ON RA T/O THE NIGHT. SATURATIONS ABOVE 95%. PT WAS INCONTIENT OF STOOL. TREJO DRAINING CAROLE COLORED URINE. PT WAS TURNED Q2. PT TEMP REMAINED IN THE 100F DISPITE GETTING TYLENOL.
--- NOTE | 2022-04-13 14:17 | NUR ---
UPDATE PT WAS TRANSITIONED TO COMFORT CARE MEASURES. TELEMETRY WAS DISCONTINUED AND REMOVED FROM THE PT. THIS RN CHOSE TO RETAIN CONTINUOUS PULSE OXIMETRY FOR MONITORING PURPOSES. PT DENIED PAIN/DISCOMFORT. PT WAS REPOSITIONED AND FELL BACK TO SLEEP.
--- NOTE | 2022-04-13 17:36 | NUR ---
pt arrived via bed to 333, moved to clean bed, placed her on her side propped with pillows for comfort, call light in reach.
--- NOTE | 2022-04-14 04:38 | NUR ---
PT ON COMFORT MEASURES. PT ALERT TO SELF ONLY. PT RESTING COMFORTABLY. TREJO IN PLACE DRAINING TO GRAVITY. ORAL CARE DONE. ONE INCONT STOOL. BP MEDICATION D/C PT IS NOT ON TELEMETRY D/T COMFORT MEASURES.
--- NOTE | 2022-04-14 08:04 | NUR ---
PATIENT SLEEPING AT THIS TIME. NO S/S OF PAIN OR DISCOMFORT. FALL PRECAUTIONS IN PLACE.
--- NOTE | 2022-04-14 12:00 | NUR ---
PATIENT AWAKE AND OFFERED NUTRITION, DID HAVE SOME MILK. ORAL CARE PERFOMRED BY BUTTON MAKER AND INSTALLER. PATIENT DENIES ANY PAIN OR DISCOMFORT.
--- NOTE | 2022-04-14 18:06 | NUR ---
PATIENT ORDERED [facility] SOFT DIN[facility] AND SCHOOL PSYCHOLOGIST IS ASSISTING HER TO EAT. PATIENT DENIES ANY PAIN OR DISCOMFORT. PLAN IS TO D/C HOME WITH HOSPICE TOMORROW. FALL PRECAUTIONS IN PLACE. TRJEO TO GRAVITY.
--- NOTE | 2022-04-15 05:53 | NUR ---
SHIFT SUMMARY NO ACUTE CHANGES THIS SHIFT. PT IS RESTING IN BED MEDICATED FORPAIN PER DEC. MEPELEX WAS PLACED ON BLISTERS ON BUTTOCKS AND HEELS. PT WAS ABLE TO VERBALIZE NEEED FOR PAIN MEDICATION AND WHICH WAY SHE WOULD LIKE TO BE POSITIONED AND WHAT SHE WANTS TO EAT. UPDATE AND CLARIFICATION IN DISCHARGE GIVEN TO DAUGHTER REGARDING HOSPICE. BED IN LOWEST POSITION AND CALL LIGHT IN REACH
[2022-04-15] MEDS ORDERED: MORP20L SL (07:55)
[2022-04-15] MEDS ORDERED: TRANSDERM-SCOP1 EA11 TD (07:57)
--- NOTE | 2022-04-15 11:20 | NUR ---
PATIENT D/C'D TO HOMEWITH HOSPICE. DC INSTRUCTIONS AND EDUCATION DISCUSSED WITH GRANDDAUGHTER AND COPY SENT WITH FITNESS TEACHER. FAMILY DENIES ANY FURTHER QUESTIONS OR CONCERNS.
== END 2022-04-15 11:18 | disposition hospice, home (50) | DRG 871 ==
LOC: ER 21:44 → PCU 04-11 00:41 → MEDS 04-13 17:27
PROVIDERS: Family Medicine; Hospitalist; Student in an Organized Health Care Education/Training Program; ADMIT Internal Medicine
PROC: 3E03329 Introduction of Other Anti-infective into Peripheral Vein, Percutaneous Approach (ICD-10-PCS; principal; 2022-04-11)
PROC: 8E0ZXY6 Isolation (ICD-10-PCS; 2022-04-11)
DX: A41.89 Other specified sepsis (principal); G93.41 Metabolic encephalopathy; I21.A1 Myocardial infarction type 2; U07.1 COVID-19; E87.2 Acidosis; I50.42 Chronic combined systolic (congestive) and diastolic (congestive) heart failure; I48.20 Chronic atrial fibrillation, unspecified; R64 Cachexia; Z68.1 Body mass index [BMI] 19.9 or less, adult; N17.9 Acute kidney failure, unspecified; E87.0 Hyperosmolality and hypernatremia; Z66 Do not resuscitate; Z51.5 Encounter for palliative care; I11.0 Hypertensive heart disease with heart failure; R65.20 Severe sepsis without septic shock; L89.622 Pressure ulcer of left heel, stage 2; L89.612 Pressure ulcer of right heel, stage 2; L89.312 Pressure ulcer of right buttock, stage 2; E78.5 Hyperlipidemia, unspecified; E83.39 Other disorders of phosphorus metabolism; K21.9 Gastro-esophageal reflux disease without esophagitis; E87.6 Hypokalemia; F03.90 Unspecified dementia, unspecified severity, without behavioral disturbance, psychotic disturbance, mood disturbance, and anxiety; M19.90 Unspecified osteoarthritis, unspecified site; Z96.653 Presence of artificial knee joint, bilateral; Z88.8 Allergy status to other drugs, medicaments and biological substances; Z79.82 Long term (current) use of aspirin; Z79.899 Other long term (current) drug therapy; Z86.73 Personal history of transient ischemic attack (TIA), and cerebral infarction without residual deficits; Z90.89 Acquired absence of other organs; Z90.49 Acquired absence of other specified parts of digestive tract
CPT/HCPCS: 0241U; 36415; 51702; 70450; 71045; 80048; 80053; 81003; 82248; 82947; 83605; 83735; 84100; 84132; 84145; 84295; 84484; 85025; 85610; 85730; 87040; 92610; 93005; 93010; 96365-59; 99285-25; A9270; J0692; J1650; J3480; J7030; J7040; J7060; J7070; J7120